=== PATIENT | female | born 1990 | race Caucasian/White ===

== ENCOUNTER 2021-08-13 18:20 | Emergency (ER) | payer SELFPAY ==
[2021-08-13 18:54] VITALS: BP 124/78; PULSE 87; RESP 20; TEMP 36.8; O2SAT 98
[2021-08-13 19:08] LABS: Hematocrit 37.6 % (37.0-47.0); Hemoglobin 12.7 g/dL (12.0-15.0); Mean Corpuscular HGB Conc 33.8 g/dl (32-36); Mean Corpuscular Hemoglobin 30.5 pg (26-34); Mean Corpuscular Volume 90.2 fl (80-100); Mean Platelet Volume 12.1 fl (7.4-10.4); Platelet Count Result 238 k/mm3 (150-375); Red Blood Count 4.17 M/mm3 (4.2-5.4); Red Cell Distribution Width 12.7 % (11.5-14.5); White Blood Count 14.4 K/mm3 (4.5-10.0)
[2021-08-13 19:13] LABS: Appearance Urine Slightly Cloudy (Clear); Bilirubin Urine 1+ (Negative); Blood Urine 3+ (Negative); Color Urine Yellow (Yellow); Glucose Urine UA Negative (Negative); Ketones Urine 4+ mg/dL (Negative); Leukocyte Esterase Ur Trace LEU/UL (Negative); Nitrate Urine Negative (Negative); Protein Urine 1+ mg/dL (Negative); Specific Grav Ur >= 1.030 (1.001-1.035); Urobilinogen Urine 0.2 mg/dL (<2.0); pH Urine 5.5 (5.0-9.0)
[2021-08-13 19:17] LABS: Alanine Aminotransferase 19 U/L (6-35); Albumin Level 4.2 g/dL (3.5-5.1); Alkaline Phosphatase 68 U/L (38-126); Anion Gap 11 mmol/L (8-16); Aspartate Amino Transferase 27 U/L (14-36); Bilirubin,Total 0.3 mg/dL (0.2-1.3); Blood Urea Nitrogen 12 mg/dL (7-17); Calcium 8.9 mg/dL (8.4-10.2); Carbon Dioxide 20 mmol/L (22-30); Chloride 106 mmol/L (98-107); Estimated CRCL calculation 74 ml/min; Estimated Glomerular Filt Rate > 60; Glucose 188 mg/dL (65-110); Lipase 106 U/L (23-300); Potassium 3.3 mmol/L (3.4-5.0); Sodium 137 mmol/L (137-145)
[2021-08-13 19:19] LABS: Mucus Urine Rare /lpf; RBC Urine >75 /hpf (0-2); Squamous Epithelial Cell Urine Few /hpf (Few)
[2021-08-13 19:23] LABS: Add Urine Microscopic? YES
[2021-08-13 19:35] LABS: Band Neutrophils Percent 2 % (0-6); Lymphocytes Absolute Manual 0.57 K/mm3 (1.1-4.5); Monocytes Absolute Manual 0.14 K/mm3 (0.1-0.90); Monocytes Percent Manual 1 % (3-9); Neutrophils Absolute Manual 13.68 K/mm3 (1.7-7.2); Neutrophils Percent Manual 93 % (46-73); Total Cells Counted 100
[2021-08-13 19:36] LABS: Platelet Estimate Adequate (Adequate)
--- NOTE | 2021-08-14 00:09 | PC.NURSE ---
called for pt twice at 2347 and 0002. no answer. pt LWBS-Triaged. Time unknown
== END 2021-08-13 23:47 | disposition left against medical advice (07) ==
PROVIDERS: Emergency Provider Emergency Medicine
DX: R11.10 Vomiting, unspecified (principal)
CPT/HCPCS: 36415; 80053; 81001; 81025; 83690; 85025; 99199

== ENCOUNTER 2022-12-11 01:59 | Day surgery (SDC) | payer BC, SELFPAY ==
[2022-12-03 13:00] VITALS: BMI 21.9
[2022-12-11 07:26] VITALS: BP 99/73; PULSE 87; RESP 16; TEMP 36.4; O2SAT 100
[2022-12-11] MEDS: LACTATED RINGERS 1,000 ML 150 ML IV CONT (07:33)
--- NOTE | 2022-12-11 08:25 | P.PNAN_ITS ---
Anes - Initial Pre Proc Eval Procedure: Operation Date: 12/11/22 08:45 Proposed Procedures p Colonoscopy - Lee Trujillo MD Date/Time: 12/11/22 08:25 Surgeon: Lee Trujillo MD Pre Op Diagnosis: family hx colon ca Patient Data Age: 32 Gender: F Height: 1.55 m Weight: 50 kg Last Vital Signs Temp 97.6 F 12/11/22 07:26 Pulse 87 12/11/22 07:26 Resp 16 12/11/22 07:26 BP 99/73 L 12/11/22 07:26 Pulse Ox 100 12/11/22 07:26 O2 Del Method Room Air 12/11/22 07:26 Allergies Allergy/AdvReac Type Severity Reaction Status Date / Time Penicillins Allergy Severe Hives Verified 12/11/22 07:22 Home Medications Medication Instructions Recorded Confirmed Type DAR-vzfx-PI-omega 3-fat com #1 27 1 cap PO DAILY 12/03/22 12/11/22 History mg-1 mg-300 mg capsule Patient hx anesthesia problems: none Family hx anesthesia problems: none Results Review: All pre-operative results and documents have been reviewed as part of the pre- operative evaluation. [facility] Social History Social History Smoking status: Never smoker Alcohol intake: current Substance use: current Substance use type: marijuana Other substance usage details: SMOKES OCC. Living arrangements: with family Spiritual care concerns: No Anes - Eval Final PreProcedure Day of Procedure 12/11/22 08:25 Patient weight: normal Heart: regular rate and rhythm Lungs: clear to auscultation Airway: Mallampati scale class II Neurological: alert and oriented Last oral intake: >/= 8 hours ASA classification: I Emergent: no Anesthetic plan: proceed Anesthesia type and monitoring: general GIVS and standard monitoring Results Review: All pre-operative results and documents have been reviewed as part of the pre- operative evaluation. Informed Consent: The patient's anesthetic plan and its attendant risks and benefits were discussed with the patient/family/POA. Questions were solicited and answers provided to the satisfaction of the patient/family/POA.
--- NOTE | 2022-12-11 08:26 | PM.HPGS ---
History of Present Illness History of Present Illness Consent: Risks, benefits, and alternatives have been discussed and questions answered. Patient agrees to proceed with procedure. Chief complaint: family hx colon ca Narrative: Anette Taylor is a 32 year old female with history of colon cancer in father and paternal uncle, last colonoscopy 4 years ago, she was told to get her colonoscopies every 4 years. Review of Systems Constitutional: Constitutional: Denies headache(s) and Denies weakness Eyes: Eyes: Denies blurry vision ENT: Reports Normal hearing present, Denies headache(s) and Denies neck pain Cardiovascular: Cardiovascular: Denies chest pain and Denies dyspnea Respiratory: Respiratory: Denies dyspnea Gastrointestinal: Gastrointestinal: Reports no additional gastrointestinal complaints Genitourinary: Genitourinary: Denies dysuria Musculoskeletal: Musculoskeletal: Denies neck pain Integumentary/Breasts: Skin/Breast: Denies dry skin Neurologic: Reports Normal hearing present, Denies headache(s) and Denies weakness Psychiatric: Psychiatric: Denies anxiety Endocrine: Endocrine: Denies change in body appearance Hematologic/Lymphatic: Hematologic/Lymphatic: Denies easy bleeding Allergic/Immunologic: Allergic/Immunologic: Denies urticaria PMFSH Past Medical History Medical History (Updated 12/11/22 @ 08:28 by Lee Trujillo MD) Family history of colon cancer Social History Social History Smoking status: Never smoker Alcohol intake: current Substance use: current Substance use type: marijuana Other substance usage details: SMOKES OCC. Living arrangements: with family Spiritual care concerns: No Meds Home Medications and Allergies Home Medications Medication Instructions Recorded Confirmed Type REH-gmat-TU-omega 3-fat com #1 27 1 cap PO DAILY 12/03/22 12/11/22 History mg-1 mg-300 mg capsule Allergies Allergy/AdvReac Type Severity Reaction Status Date / Time Penicillins Allergy Severe Hives Verified 12/11/22 07:22 Vital Signs Vital Signs - 24 hr 12/11/22 07:26 Temperature 97.6 F Pulse Rate 87 Respiratory Rate 16 Blood Pressure 99/73 L Pulse Oximetry 100 Oxygen Delivery Room Air Exam Const: General: comfortable and no acute distress HENMT: Face/Nose/Sinus: Normal nares present Eyes: General: appearance normal, both eyes and all related structures Neck: Neck: no JVD Resp: Auscultation: clear to auscultation bilaterally Cardio: Rate: regular rate Rhythm: regular rhythm GI: Inspection: non-distended GI Palp: Yes Soft to palpation Skin: General skin exam: normal color Neuro: General: gait normal Speech: normal speech Extrem: General: normal to inspection Psych: Mental Status: mental status grossly normal Assessment and Plan Assessment and plan (1) Family history of colon cancer: Code(s): Z80.0 - Family history of malignant neoplasm of digestive organs Status: Acute Assessment and Plan: colonoscopy
[2022-12-11 08:43] VITALS: BP 85/58; PULSE 86; RESP 17; O2SAT 99
[2022-12-11 08:53] VITALS: BP 96/65; PULSE 81; RESP 16; O2SAT 100
[2022-12-11 09:03] VITALS: BP 106/68; PULSE 80; RESP 22; O2SAT 100
== END 2022-12-11 09:07 | disposition home or self-care (01) ==
PROVIDERS: PCP Student in an Organized Health Care Education/Training Program; Visit Provider Internal Medicine Gastroenterology
PROC: 0DJD8ZZ Inspection of Lower Intestinal Tract, Via Natural or Artificial Opening Endoscopic (ICD-10-PCS; CPT 45378; principal; 2022-12-11 08:45)
DX: Z12.11 Encounter for screening for malignant neoplasm of colon (principal); K63.5 Polyp of colon; K64.8 Other hemorrhoids; Z80.0 Family history of malignant neoplasm of digestive organs; F12.90 Cannabis use, unspecified, uncomplicated
CPT/HCPCS: 45385; 88305; J2704; J7120

== ENCOUNTER → 2023-03-17 10:14 | Outpatient (CLI) | payer BC, SELFPAY ==
--- NOTE | ~2023-03-17 | MR_ITS ---
EXAMINATION: MR hand RT wo con DATE: 03/17/2023 10:49 INDICATION: Pain at the third proximal interphalangeal joint of the right hand post blunt trauma 5 mo nths prior. TECHNIQUE: Magnetic resonance imaging (MRI) of the right hand was performed without intravenous contr ast to include the metacarpals and digits. Sequences included axial, sagittal and coronal T1-weighted FSE and fluid sensitive FSE STIR. COMPARISON: None FINDINGS: Bone alignment is normal with normal marrow signal throughout. No fracture, reactive edema or patholo gic marrow replacing process. Joint spaces appear normal with no erosions or joint effusions. There i s thickening and mild increased signal of the ulnar collateral ligament complex and to lesser degree the radial collateral ligament complex at the third proximal interphalangeal joint without surroundin g edema consistent with scarring related to chronic sprain/partial tear. The remaining collateral lig ament complexes at the metacarpophalangeal and interphalangeal joints are normal. The flexor and exte nsor tendons are normal with no tenosynovitis. Intrinsic musculature is normal. IMPRESSION: 1. Scarring consistent with chronic sprain/partial tears of the ulnar collateral and to lesser degree the radial collateral ligament complex at the third proximal interphalangeal joint. Reviewed, dictated and finalized at location A. [employer] IMPRESSION: 1. Scarring consistent with chronic sprain/partial tears of the ulnar collatera l and to lesser degree the radial collateral ligament complex at the third prox imal interphalangeal joint.
== END ==
PROVIDERS: PCP Student in an Organized Health Care Education/Training Program; Visit Provider Student in an Organized Health Care Education/Training Program
DX: M79.644 Pain in right finger(s) (principal)
CPT/HCPCS: 73218

== ENCOUNTER 2023-06-11 14:46 | Outpatient (CLI) | payer BC, SELFPAY ==
--- NOTE | ~2023-06-11 | US_ITS ---
EXAMINATION: US OB <= 14 weeks fetus DATE: 06/11/2023 15:05 INDICATION: Evaluate viability TECHNIQUE: Real-time transabdominal and transvaginal obstetric ultrasound. FINDINGS: No prior studies for comparison. The uterus measures 12.2 x 10.1 x 7.3 cm. There is an intrauterine gestational sac, with pole i dentified. The crown rump length measures 6.83 cm, which correlates with a estimated gestational age of 13 weeks 1 day. heart tones are identified measuring 159. There is a subchorionic hemorrh age measuring 2.3 x 2.1 x 1 cm. IMPRESSION: 1. SL IUP with an EGA of 13 weeks, 1 days (EDC by current ultrasound of 12/16/2023). 2: Moderate size subchorionic hemorrhage. Reviewed, dictated and finalized at location B. IMPRESSION: 1. SL IUP with an EGA of 13 weeks, 1 days (EDC by current ultrasound of 024). 2: Moderate size subchorionic hemorrhage.
== END 2023-06-11 14:47 ==
LOC: GOSHIMG 14:48
PROVIDERS: PCP Obstetrics & Gynecology Gynecology; Visit Provider Obstetrics & Gynecology Gynecology
DX: Z36.87 Encounter for antenatal screening for uncertain dates (principal); Z3A.13 13 weeks gestation of pregnancy
CPT/HCPCS: 76801

== ENCOUNTER 2023-10-25 14:05 | Outpatient (CLI) | payer BC, SELFPAY ==
--- NOTE | ~2023-10-25 | US_ITS ---
EXAMINATION: US OB follow up DATE: 10/25/2023 14:30 INDICATION: Expected size less than expected for estimated gestational age TECHNIQUE: Real-time ultrasound of the pelvis was performed. The interpreting radiologist was not pre sent for the study. COMPARISON: 06/11/23 FINDINGS: There is a single living fetus in vertex presentation. The placenta is anterior fundal and not low-l shireen. heart rate is 157 beats per minute (bpm). The amniotic fluid index is 12.1 cm, which is normal (5th%-95%: 8.6-24.2 cm at 32 weeks estimated gestational age). The following biometric data were obtained: BPD: 7.9 cm -> 31 weeks 6 days Head circumference: 29.1 cm -> 32 weeks 0 days Abdominal circumference: 26.1 cm -> 30 weeks 1 days Femur length: 5.9 cm -> 30 weeks 5 days These measurements are concordant. Head circumference to abdominal circumference ratio: 1.12 (normal range 0.96-1.17). Estimated weight: 1620 g (+/-) 243 g or 3 lbs. 9 oz. (+/-) 9 oz. IMPRESSION: 1. Single living fetus in vertex presentation with heart rate of 157 bpm. 2. Normal amniotic fluid index of 12.1 cm. 3. Estimated weight is 4th percentile by Hadlock criteria when 12/16/2023 is used as the estima divya date of delivery (LISSY). Please correlate with clinical information or earlier ultrasounds for mos t accurate LISSY. Reviewed, dictated and finalized at location B. IMPRESSION: 1. Single living fetus in vertex presentation with heart rate of 157 bpm. 2. Normal amniotic fluid index of 12.1 cm. 3. Estimated weight is 4th percentile by Hadlock criteria when 12/16/2023 is used as the estimated date of delivery (LISSY). Please correlate with clinica l information or earlier ultrasounds for most accurate LISSY.
== END 2023-10-25 14:06 | disposition home or self-care (01) ==
PROVIDERS: PCP Advanced Practice Midwife; Visit Provider Advanced Practice Midwife
DX: O36.5930 Maternal care for other known or suspected poor fetal growth, third trimester, not applicable or unspecified (principal); Z3A.00 Weeks of gestation of pregnancy not specified
CPT/HCPCS: 76816

== ENCOUNTER 2023-12-19 09:58 | Inpatient (IN) | payer BC, SELFPAY ==
[2023-12-19] VITALS (155 sets, daily range): BP systolic 92–150; BP diastolic 49–121; PULSE 56–196; TEMP 36.3–37.6; O2SAT 71–100; BMI 28.0
--- NOTE | 2023-12-19 10:57 | LDADM ---
This patient, Anette Taylor, was admitted to Labor/Delivery/Recovery 106 on 12/19/23 at 09:58. Plans for labor, pain management and were discussed with patient. Patient/family oriented to hospital policies and general routines including ID bracelet, bed and alarms, visiting hours, pain management, procedures, bathroom and other care routines, personal items, smoking policy, room service/diet and guest tray routines, security routines, and visiting hours. Patient/Family are encouraged to report perceived risks to care and to ask questions if they do not understand what they are told or what they should do. See OBIX for further documentation.
[2023-12-19 11:02] LABS: Basophils Percent Auto 0.3 % (0.2-1.2); Eosinophils Percent Auto 0.2 % (0-4.4); Hematocrit 33.7 % (37.0-47.0); Hemoglobin 10.6 g/dL (12.0-15.0); Immature Granulocyte Absolute 0.11 K/mm3 (0.00-0.031); Immature Granulocyte Percent A 0.8 % (0-0.5); Immature Platelet Fraction Pct 11.6 % (0.9-11.2); Lymphocytes Absolute Auto 2.22 K/mm3 (0.9-3.2); Lymphocytes Percent Auto 15.9 % (18.3-44.2); Mean Corpuscular HGB Conc 31.5 g/dl (32-36); Mean Corpuscular Hemoglobin 23.7 pg (26-34); Mean Corpuscular Volume 75.2 fl (80-100); Mean Platelet Volume 12.4 fl (7.4-10.4); Monocytes Absolute Auto 0.7 K/mm3 (0.1-0.6); Monocytes Percent Auto 4.7 % (2.6-8.5); Neutrophils Absolute Auto 10.9 K/mm3 (1.3-6.7); Neutrophils Percent Auto 78.1 % (45.5-73.1); Platelet Count Result 284 k/mm3 (150-375); Red Blood Count 4.48 M/mm3 (4.2-5.4); Red Cell Distribution Width 15.9 % (11.5-14.5)
--- NOTE | 2023-12-19 11:08 | P.HP_ITS ---
H&P: HPI History of Present Illness Date/Time: 12/19/23 11:08 Chief Complaint: Ruptured membranes at term Narrative: 33-year-old 2 para 0 whose last menstrual period is 03/18/2023, EDC is 12/23/2023, confirmed by 12 week ultrasound presents at 39 weeks gestation with spontaneous rupture membranes [id number]. has been relatively uncomplicated. She has a history of kidney stones in oral HSV for which she has been on preventive therapy. She has also had a history of a LEEP in is advanced maternal age. She was also positive for weed usage early in the [facility] Past Medical History Medical History Family history of colon cancer Family History Family History Grandparent Colon cancer Grandparent Colon cancer Father Colon cancer Social History Social History Smoking status: Never smoker Alcohol intake: current Substance use: never Substance use type: marijuana Other substance usage details: SMOKES OCC. Do You Feel Safe in your Home?: Yes Lack of Transportation: No Lack of Food: Never True Current Housing: I Have Housing Concerned About Future Housing: No Difficulty Paying Gas/Electric Bills: No Difficulty Paying for Meds: No Currently Unemployed: No Education: Trade/Vocational Certificate Difficulty w/ Childcare or Family Care: No Living arrangements: with family Spiritual care concerns: No Meds Home Medications and Allergies Home Medications Medication Instructions Recorded Confirmed Type SAK-qspb-SP-omega 3-fat com #1 27 1 cap PO DAILY 12/03/22 12/19/23 History mg-1 mg-300 mg capsule valacyclovir 500 mg tablet 500 mg PO BID 12/08/23 12/08/23 History (Valtrex) Allergies Allergy/AdvReac Type Severity Reaction Status Date / Time Penicillins Allergy Severe Hives Verified 12/08/23 14:16 Vital Signs Vital Signs - 24 hr 12/19/23 10:44 12/19/23 10:48 Pulse Rate 108 H Blood Pressure 125/89 Oxygen Delivery Room Air Exam Const: General: cooperative, healthy appearing and comfortable Nutritional Appearance: average body habitus Orientation/consciousness: oriented to person, oriented to place and oriented to time Resp: Effort & Inspection: normal respiratory effort Cardio: Rate: regular rate Rhythm: regular rhythm Heart sounds: S1 normal heart sound present and S2 normal heart sound present GI: Inspection: normal to inspection : External Female Exam: normal external appearance Speculum Exam - Vagina: normal appearance of the vagina Speculum Exam - Cervix: normal appearance of the cervix ( cervix 1cm in soft with clear fluid. heart tones were reassuring) H&P: Results Labs Labs: Short CBC 12/19/23 Range/Units 10:50 WBC 14.0 H (4.5-10.0) K/mm3 Hgb 10.6 L (12.0-15.0) g/dL Hct 33.7 L (37.0-47.0) % Plt Count 284 (150-375) k/mm3 Assessment and Plan Assessment and plan (1) Term : Code(s): Z34.90 - Encounter for supervision of normal , unspecified, unspecified trimester Status: Acute (2) Spontaneous rupture of membranes: Status: Acute Assessment and Plan: in light of her rupture of membranes will start Pitocin. She is an epidural candidate
[2023-12-19] MEDS: OXYTOCIN 30 UNITS/NS 500 ML 30 UNITS/500 ML BAG IV CONT (11:13)
[2023-12-19] MEDS: LACTATED RINGERS 1,000 ML 125 ML IV CONT ×2 (11:13→14:50)
[2023-12-19 11:34] LABS: OBXCEM ROM Plus Positive (Negative)
[2023-12-19 11:49] LABS: HIV 1/2 Ab P24 Ag Result Negative (Negative)
[2023-12-19 12:27] LABS: Rapid Plasma Reagin Non-Reactive (NonReactive)
[2023-12-19 12:53] LABS: Amphetamine Screen Urine Negative (Negative); Barbiturate Screen Urine Negative (Negative); Benzodiazepines Screen Urine Negative (Negative); Cannabinoid Screen Urine Negative (Negative); Cocaine Screen Urine Negative (Negative); Methadone Screen Urine Negative (Negative); Opiate Screen Urine Negative (Negative); Phencyclidine Screen Urine Negative (Negative)
--- NOTE | 2023-12-19 17:05 | PM.OBPNLAB ---
Pain Control Date/time seen: 12/19/23 17:05 Pain control: tolerating well and epidural Pelvic Exam Dilation (cm): 5 Effacement (%): 75 station: -2 Amniotic membrane status: Leaking Contractions Monitor mode: Internal Contraction frequency: 3
[2023-12-19] MEDS: FAMOTIDINE 20 MG/2 ML VIAL IV PUSH (18:06)
[2023-12-19] MEDS: ONDANSETRON INJ 4 MG/2 ML VIAL IV PUSH (21:09)
--- NOTE | 2023-12-19 21:55 | PM.OBPRVD ---
OB - Vaginal Delivery Note Procedure Delivery date: 12/19/23 Induction method: None Delivery augmentation: Pitocin Delivery monitor: External FHT and Internal Uterine Route of delivery: Episiotomy description: None Laceration Description: Perineal - 2nd Degree Delivery repair: vicryl Specimen: No Quantitative Blood Loss (ml): 61 Anesthesia type: Epidural Disposition: Floor Complications: No immediate complications Narrative: Patient was admitted after spontaneous rupture membranes approximately 0 300 this morning. She was watched and had irregular contractions. Pitocin was begun. She progressed in unremarkable 1st stage of labor had epidural anesthesia placed when she was complete she pushed delivered head spontaneously in the JOHANN position. Anterior posterior shoulder delivered spontaneously. Cord clamped visual cut infant passed off the table given Apgars of 8 [id number]. Cord blood was drawn. Placenta delivered intact spontaneously. Twenty of Pitocin placed IV to help firm the uterus. After inspecting the vagina small midline second-degree laceration was noted which was small in nature and was closed in layered fashion. The mom and baby doing fine time make taken there were no immediate complications [place] [facility] Date of : 12/19/23 Time of : 21:42 Gestational Age by Date: 39 gender: Female presentation: vertex position: Left Occiput Anterior Placenta delivery description: Spontaneous Cord Vessel Description: 3 Vessels score one minute: 8 score five minutes: 9
[2023-12-19] MEDS: OXYTOCIN 30 UNITS/NS 500 ML 30 UNITS/500 ML BAG 125 UNITS IV CONT (22:20)
[2023-12-19] MEDS: ACETAMINOPHEN 325 MG TABLET 650 MG PO (23:47)
[2023-12-19] MEDS: WITCH HAZEL 40 PADS 1 PAD TOPICAL (23:47)
[2023-12-19] MEDS: BENZOCAINE 20% AER SPR (*SP) 56 GM CAN 1 SPRAY TOPICAL (23:47)
[2023-12-20] VITALS: BP 138/78; PULSE 100
[2023-12-20 00:36] VITALS: BP 123/80; PULSE 99
--- NOTE | 2023-12-20 01:00 | OBPPTRN ---
Patient transferred to post care in room #112 via wheelchair. Support person present. Oriented to unit, room, information board, rooming in, admission packet and security measures. Patient verbalizes understanding.
[2023-12-20 01:02] VITALS: BP 123/80; PULSE 99; RESP 20; TEMP 36.7; O2SAT 100
[2023-12-20 04:23] LABS: Hematocrit 27.7 % (37.0-47.0); Hemoglobin 8.7 g/dL (12.0-15.0)
--- NOTE | 2023-12-20 08:22 | P.PNOB_ITS ---
OB - PN: Subj Subjective Date/time seen: 12/20/23 08:22 Patient comments: no complaints and pain well controlled baby status: doing well OB - PN: Obj Data Labs 12/20/23 04:07 Labs: Laboratory Results - last 24 hr 12/19/23 12/19/23 12/19/23 10:12 10:50 12:25 WBC 14.0 H RBC 4.48 Hgb 10.6 L Hct 33.7 L MCV 75.2 L MCH 23.7 L MCHC 31.5 L RDW 15.9 H Plt Count 284 MPV 12.4 H Immature Gran % (Auto) 0.8 H Neut % (Auto) 78.1 H Lymph % (Auto) 15.9 L [place] % (Auto) 4.7 Eos % (Auto) 0.2 Baso % (Auto) 0.3 Lymph # (Auto) 2.22 [place] # (Auto) 0.7 H Eos # (Auto) 0.0 Baso # (Auto) 0.0 Abs Immat Gran (auto) 0.11 H Absolute Neuts (auto) 10.9 H Absolute Nucleated RBC 0.000 Nucleated RBC % 0.0 % Immature Plt Fraction 11.6 H Membranes Rupture Rom plus positive Urine Opiates Screen Negative Urine Methadone Screen Negative Ur Barbiturates Screen Negative Ur Phencyclidine Scrn Negative Ur Amphetamine Screen Negative U Benzodiazepines Scrn Negative Urine Cocaine Screen Negative U Cannabinoids Screen Negative RPR Non-reactive HIV 1&2 Ab/P24 Ag 4thGn Negative Blood Type B Negative Antibody Screen Negative 12/20/23 04:07 WBC RBC Hgb 8.7 L Hct 27.7 L MCV MCH MCHC RDW Plt Count MPV Immature Gran % (Auto) Neut % (Auto) Lymph % (Auto) [place] % (Auto) Eos % (Auto) Baso % (Auto) Lymph # (Auto) [place] # (Auto) Eos # (Auto) Baso # (Auto) Abs Immat Gran (auto) Absolute Neuts (auto) Absolute Nucleated RBC Nucleated RBC % % Immature Plt Fraction Membranes Rupture Urine Opiates Screen Urine Methadone Screen Ur Barbiturates Screen Ur Phencyclidine Scrn Ur Amphetamine Screen U Benzodiazepines Scrn Urine Cocaine Screen U Cannabinoids Screen RPR HIV 1&2 Ab/P24 Ag 4thGn Blood Type Antibody Screen OB - PN A/P Plan day: 1 Plan: routine care and other ( Iron twice daily due to hemoglobin of 8.7) Time Spent With Patient Time: Total time spent is greater than 50% in coordination of care (as documented) at patient's floor/unit and/or counseling patient: Exam : Bimanual exam- vagina & uterus: other (Uterus firm, nt @U)
[2023-12-20] MEDS: IBUPROFEN 600 MG TABLET PO ×2 (08:33→16:07)
[2023-12-20] MEDS: MULTIVIT/MIN/PREN/FOL AC/IRON TABLET 1 TAB PO (08:33)
[2023-12-20] MEDS: POLYSACCHARIDE IRON COMPLEX 150 MG CAPSULE PO ×2 (08:33→16:06)
[2023-12-20] MEDS: DOCUSATE SODIUM 100 MG CAPSULE PO ×2 (08:33→16:06)
--- NOTE | 2023-12-20 09:30 | PC.NURSE ---
Patient transferred from room 112 to post room #290 via wheelchair. Support person present. Oriented to unit, room, information board, rooming in, admission packet and security measures. Patient verbalizes understanding.
[2023-12-20 09:35] VITALS: BP 104/73; PULSE 88; RESP 16; TEMP 36.8; O2SAT 97
--- NOTE | 2023-12-20 10:17 | WPDANLDPN2 ---
Anes-Prog Note L&D Date/Time: 12/20/23 10:17 Neuro status: Neuro function grossly intact. Vital Signs: Last Vital Signs Temp 36.7 C 12/20/23 01:02 Pulse 99 12/20/23 01:02 Resp 20 12/20/23 01:02 BP 123/80 12/20/23 01:02 Pulse Ox 100 12/20/23 01:02 O2 Del Method Room Air 12/19/23 10:48 Pain score (VAS): 0 I/O: Intake & Output 12/19/23 12/20/23 12/20/23 23:59 07:59 15:59 Output Total 61 115 Balance -61 -115 Patient feedback: Patient satisfied with anesthetic care.
--- NOTE | 2023-12-20 10:45 | PC.NURSE ---
Mother called out for assistance. She has given bottles a few times so far but says that infant is latching well. Encouraged understanding of milk production, colostrum, frequency of infant feeding and duration if feeds. Mom has concerns that baby isn't 'getting enough' because she wants to eat frequently. Reassured mom this is normal behavior. Infant was sucking vigorously on the pacifier prior to the feeding and struggled a bit to latch to the nipple. Baby was turning her head side to side at the breast and needed a facilitated breast 'sandwich' to latch on. Mom shown how to make this bite and then she was able to recreate the latch on her own. Observed mother latching to the [left] breast in [cross cradle] position. Infant [was] able to maintain an appropriate latch. Baby would suckle vigorously and after 20-30 seconds would let go and fuss. We discussed the flow of milk from a bottle versus the flow from a breast. Mother [complains of] nipple discomfort [with initial latch on]. Discussed pain/pinching throughout the feeding vs. initial latch on tenderness and strong tugging sensation. Encouraged mother to keep awake and nursing at the breast for 15 minutes. Mother taught to listen for swallowing during feedings. Reviewed using the blue feeding sheet to record time and duration of feeding. Mother voiced understanding of the education shared, to call for assistance if the infant does not latch or if there is discomfort with . name/number on communication board. Reported to the Primary RN.?
[2023-12-20 12:20] VITALS: BP 101/62; PULSE 88; RESP 16; TEMP 36.6; O2SAT 99
[2023-12-20 20:00] VITALS: BP 122/78; PULSE 94; RESP 20; TEMP 36.7; O2SAT 99
[2023-12-21 07:05] VITALS: BP 88/61; PULSE 76; RESP 16; TEMP 36.7; O2SAT 97
[2023-12-21] MEDS: DOCUSATE SODIUM 100 MG CAPSULE PO (07:34)
[2023-12-21] MEDS: IBUPROFEN 600 MG TABLET PO (07:34)
[2023-12-21] MEDS: MULTIVIT/MIN/PREN/FOL AC/IRON TABLET 1 TAB PO (07:34)
[2023-12-21] MEDS: ACETAMINOPHEN 325 MG TABLET 650 MG PO (07:34)
[2023-12-21] MEDS: POLYSACCHARIDE IRON COMPLEX 150 MG CAPSULE PO (07:34)
--- NOTE | 2023-12-21 07:48 | PM.OBPNVD ---
OB - PN: Subj Subjective Date/time seen: 12/21/23 07:48 Patient comments: no complaints and pain well controlled baby status: doing well OB - PN: Obj Data Labs 12/20/23 04:07 OB - PN A/P Plan day: 2 Plan: routine care, discharge home, follow up 6 weeks and other (micronor for bc) Time Spent With Patient Time: Total time spent is greater than 50% in coordination of care (as documented) at patient's floor/unit and/or counseling patient: Exam : Bimanual exam- vagina & uterus: other (Uterus firm, nt @U)
--- NOTE | 2023-12-21 07:49 | PM.OBDSVD ---
DS: Admitting Diagnosis Discharge Date 12/21/23 Admitting Diagnosis SROM in labor DS: Discharge Diagnosis Discharge Diagnosis (1) (normal spontaneous vaginal delivery): Code(s): O80 - Encounter for full-term uncomplicated delivery Status: Acute Assessment and Plan: Delivery by [facility] OB - DS: Summary OB Procedures : Ultrasound OB Procedures Intrapartum: Spontaneous Vag Delivery OB Procedures: : None Peripartum Data Delivery Method: Natural Vaginal Laceration Description: Perineal - 2nd Degree Episiotomy description: None complications: none Status at Discharge Functional status at discharge: independent ambulation Overall status at discharge: patient is progressing back to baseline Time Spent with Patient Time attestation: Total time spent providing and/or coordinating discharge services: Discharge Plan Discharge Attending physician on discharge: Ibis Caldwell Discharging Clinician: Ibis Caldwell Anticipated Discharge Date/Time: 12/21/23 07:50 Patient Disposition: Home, Self-Care Activity: may shower and pelvic rest Diet: regular Patient Instructions: Antibiotic Form Stand Alone Forms: General Discharge Information Follow-up/Referrals: Anette Rosen CNM [Primary Care Provider] - 6 Weeks Discharge Medications: New norethindrone (contraceptive) 0.35 mg tablet 0.35 mg PO DAILY Qty: 84 3RF Continued Pre-Shannan Multivitamins/Minerals 27-1-300 mg Capsule 1 cap PO DAILY valacyclovir [Valtrex] 500 mg Tablet 500 mg PO BID Date of admission: 12/19/23 09:58 Primary Care Provider: Anette Rosen Admitting Provider: Ibis Caldwell Attending physician on admission: Ibis Caldwell Condition: Stable
--- NOTE | 2023-12-21 08:21 | PC.NURSE ---
Patient viewed the discharge video Mother & Baby Care, The First Two Weeks . Patient was given the opportunity and encouraged to ask questions. Patient verbalized understanding of information shared and has been given the mother/baby guide for home reference.
--- NOTE | 2023-12-21 08:30 | PC.NURSE ---
Introductions were made, then consulted with patient to assess needs related to . Discussed with mother how feedings went in the night. Baby received bottles so mom could sleep. She would like to try again this morning. She is going to shower and then will call for assistance. Resources provided for inpatient and outpatient services with the feeding sheet, mom/baby guide and name/number written on the communication board. Mother voiced understanding of information and will call if there is a request for assistance. Reported to the Primary RN.
--- NOTE | 2023-12-21 09:00 | PC.NURSE ---
Mother had baby latched to the right breast already when RN entered the room. Baby was actively sucking with brief pauses. Mother states the latch is not painful. After about 15 minutes on the right, observed mother latching infant to the [left] breast in [cross cradle] position. [was] able to maintain an appropriate latch. Mother [complains of] nipple discomfort [with initial latch on] that goes away after a few seconds and then she does not feel any pain with the suckling. Encouraged mother to keep infant awake and nursing at the breast for 15 minutes per breast, trying not to go in excess of 30 minutes total. She says that she had one feeding where baby was nursing for 60 minutes. Mother taught to listen for infant swallowing during feedings. Reviewed using the blue feeding sheet to record time and duration of feeding. Discussed output requirements with the drill hand (present in the room for baby's exam) and safe sleep also. We discussed milk production, switching breasts, and pumping. Mom has a pump at home and would like to be able to pump some breast milk so others can feed baby while she sleeps. Mother voiced understanding of the education shared, to call for assistance if the does not latch or if there is discomfort with . name/number on communication board. Reported to the Primary RN.?
--- NOTE | 2023-12-21 15:00 | PC.NURSE ---
Consulted with mother concerning needs and she shared her ability to independently latch infant optimally without pain. Mother is feeding appropriately for growth of and understands stimulating to eat if needed. Infant has had appropriate feedings in the last 24 hours meets the outcomes for weight, output, blood sugar and jaundice at this time. Reinforced understanding of milk production, transition of milk, signs of adequate intake, transition of stool, prevention/relief of engorgement, plugged ducts, mastitis, responsive watching for feeding cues, the different methods of stimulating to breastfeed 1-3 hours after the start of the last feeding, community resources, and when to call a provider using the resource of the feeding sheet along with the mom and baby guide. Mother voiced understanding of the information shared, is confident to continue effectively her infant at home, when to call for assistance, denies any additional assistance or education at this time. Reported to the Primary RN.
[2023-12-23 11:25] VITALS: BP 88/61; PULSE 91; RESP 16; TEMP 36.8; O2SAT 96
== END 2023-12-21 17:42 | disposition home or self-care (01) | DRG 807 ==
LOC: ANHLDR 17:10 → ANHOBPP 12-20 00:33 → ANHOB2 12-20 09:34
PROVIDERS: Admitting Provider Obstetrics & Gynecology; PCP Advanced Practice Midwife; Visit Provider Obstetrics & Gynecology Gynecology
DX: O98.52 Other viral diseases complicating childbirth (principal); Z37.0 Single live birth; B00.9 Herpesviral infection, unspecified; O70.1 Second degree perineal laceration during delivery; Z3A.39 39 weeks gestation of pregnancy
CPT/HCPCS: 36415; 80307; 84112; 85014; 85018; 85025; 85055; 86592; 86703; 86850; 86900; 86901; A9270; G0432; J2405; J2590; J2795; J7120

== ENCOUNTER 2024-03-08 18:05 | Emergency (ER) | payer BC, SELFPAY ==
[2024-03-08 18:21] VITALS: BP 124/67; PULSE 78; RESP 18; TEMP 36.6; O2SAT 100
--- OUTSIDE RECORDS SUMMARY | 2024-03-10 03:30 | XMS_ITS | Clinical Summary ---
Author Organization [facility] Address [address] [place] [address] Care Team Providers Care Bottom Liquor Attendant Name Role Phone Bobo Virk MD Primary Care Provider [phone] Allergies Active Allergy Reactions Criticality Noted Date Comments Penicillins Rash Medium Medications valACYclovir (VALTREX) 1 gram tablet Take 2 tabs (2000 mg) 2 times a days for 1 day. 4 tablet 5 1 Active Additional Information Patient not taking.Reported on 04/01/2021 Xulane 150-35 mcg/24 hr 0 Active ondansetron (ZOFRAN) 4 mg tablet Take 1 tablet (4 mg total) by mouth every 4 (four) hours as needed for nausea or vomiting 15 tablet 1 Active Additional Information Patient not taking.Reported on 04/01/[address] (PROTONIX) 20 mg EC tablet Take 1 tablet (20 mg total) by mouth daily 20 tablet 1 Active Additional Information Patient not taking.Reported on 04/01/2021 busPIRone (BUSPAR) 5 mg tabletIndicatio ns:Generalized Anxiety Disorder Take 1 tablet (5 mg total) by mouth 3 (three) times a day 30 tablet 11 1 Active Additional Information Patient not taking.Reported on 04/01/2021 Active Problems Problem Noted Date Diagnosed Date Acute cystitis with hematuria 04/01/2021 Assessment & Plan (04/01/2021 6:01 PM LOCAL AREA NETWORK ADMINISTRATOR): Urine dip done in office: -nitrites, +blood Urine sent for culture macrobid 100mg bid x7 days sent. Reviewed abx SE & scheduling. Take all antibiotic-no leftovers Push fluids-water/cranberry juice Avoid caffeine Wash before and after sex Urinate right after sex Use dove type soap in vaginal area-no scents or dyes Take showers not baths, no bubble baths Proper wiping technique discussed Right flank pain 04/09/2020 Microscopic hematuria 04/09/2020 Urinary tract infection without hematuria 2020 Family history of colon cancer 06/29/2019 Overview (06/29/2019): Added automatically from request for surgery [id number] Calculus of kidney 11/18/2015 Immunizations Name Administration Dates Next Due Influenza, Unspecified 07/03/2020(Deferr ed: Patient Refused),02/15/2019(Deferred: Patient Refused) MMR 09/10/2019 Moderna SARS-CoV-2 Monovalen t Vaccination (12+ YRS) 04/26/2020,04/05/2020 Surgical History Surgery Date Site/Laterality Comments TONSILLECTOMY 02/15/1994 - 02/14/1995 Tonsillectomy OTHER SURGICAL HISTORY Abnormal PAP: Colpo at age 19 [place] CYSTO W/URETEROSCOPY W/RMVL/MANJ STONES Cystoscopy With Ureteroscopy With Removal Of Calculus - (Added by TW Conv) TONSILECTOMY, ADENOIDECTOMY, BILATERAL MYRINGOTOMY AND TUBES COLONOSCOPY 02/16/2004 - 02/14/2005 Medical History Medical History Date Comments History of abnormal cervical Papanicolaou smear Abnormal PAP Hx Other Medical 07/11/2014 ASCUS-H pap wit h positive HR HPV 16 Personal history of urinary calculi History of nephrolithiasis - (Added by TW Conv) Kidney stone Family History Medical History Relation Name Comments Colon cancer Father Cancer, colon; Colon cancer Father's Brother x 2 Cancer, col on; Diabetes Maternal Grandfather Diabete s mellitus; Hypertension Maternal Grandmother Hyperte nsion; Skin cancer Maternal Grandmother Colon cancer Paternal Grandfather Cancer, colon; Relation Name Status Comments Father (Age 61) Father's Brother x 2 Maternal Grandfather Maternal Grandmother Paternal Grandfather Social History Tobacco Use Types Packs/Day Years Used Date Smoking Tobacco: Never Smokeless Tobacco: Never PHQ-2 Answer Date Recorded PHQ-2 Total Score (If total score is 3 or more points, staff should administer the PHQ-9) 2 07/03/2020 Comments No Sex and Gender Information Value Date Recorded Sex Assigned at Not on file Legal Sex Female 1:43 AM LOCAL AREA NETWORK ADMINISTRATOR Gender Identity Not on file Sexual Orientation Not on file Obstetrics History Last Filed Vital Signs Vital Sign Reading Time Taken Comments Blood Pressure 92/62 04/01/2021 5:19 PM LOCAL AREA NETWORK ADMINISTRATOR Pulse 77 04/01/2021 5:19 PM LOCAL AREA NETWORK ADMINISTRATOR Temperature 36.9 ??C (98.4 ??F) 04/01/2021 5:19 PM CS T Respiratory Rate 16 04/01/2021 5:19 PM LOCAL AREA NETWORK ADMINISTRATOR Oxygen Saturation 100% 04/01/2021 5:19 PM LOCAL AREA NETWORK ADMINISTRATOR Inhaled Oxygen Concentration - - Weight 53.4 kg (117 lb 12.8 oz) 04/01/2021 5:19 PM LOCAL AREA NETWORK ADMINISTRATOR Height 154.9 cm (5' 1 ) 04/01/2021 5:19 PM LOCAL AREA NETWORK ADMINISTRATOR Body Mass Index 22.26 04/01/2021 5:19 PM LOCAL AREA NETWORK ADMINISTRATOR Plan of Treatment Health Maintenance Due Date Last Done Comments Cervical Cancer Screening 1988 Hepatitis C Screening 1988 DTaP/Tdap/Td Vaccine (1 - Tdap) 08/14/1999 Hepatitis B Screening 2006 Regular Well Visit/Exam 18-64 06/11/2020 06/12/2019 Depression Screening 07/03/2021 07/03/2020, 06/12/2019 Covid-19 Vaccine ( season) 2023 04/26/2020, 04/05/2020 Influenza Vaccine (#1) 2023 HPV Vaccines Aged Out No longer eligi ble based on patient's age to complete this topic Pneumococcal vaccine <65 Aged Out No longer eligible based on patient's age to complete this topic Varicella Vaccines Discontinued Insurance [facility] PPO [place] Advance Directives For more information, please contact: [phone] * Full Code (Latest Code Status on File) Date Activated Date Inactivated Comments 09/08/2019 8:04 AM 09/08/2019 2:58 PM * Full Code Date Activated Date Inactivated Comments 09/08/2019 8:04 AM 09/08/2019 8:04 AM Care Teams Bottom Liquor Attendant Relationship Specialty Start Date End Date Bobo Virk MD [address] [place] [address] PCP - General Family Medicine 03/27/19
--- OUTSIDE RECORDS SUMMARY | 2024-03-10 03:30 | XMS_ITS | Clinical Summary ---
Author Organization [facility] Address Count includes the [facility] [facility] [place] [address] [place] [address] Care Team Providers Care Wire Bound Box Machine Helper Name Role Phone Stoney Weinberg DO Primary Care Provider + Allergies Active Allergy Reactions Criticality Noted Date Comments Penicillins Rash,Hives,Itching Medium 06/26/2021 Medications ibuprofen 200 MG tablet Take 1 tablet (200 mg total) by mouth every 6 (six) hours as needed for Pain. Active scopolamine (TRANSDERM-SCOP ) 1 MG/3DAYS patchIndication s:Motion sickness, initial encounter Place 1 patch onto the skin every third day. 10 patch 08/29/2021 Active hydrOXYzine (ATARAX) 25 MG tablet Take 1 tablet (25 mg total) by mouth nightly at bedtime. 04/27/2023 Active metoclopramide (REGLAN) 5 MG tablet Take 1 tablet (5 mg total) by mouth 4 (four) times daily. 04/29/2023 Active Ggoyfwkd-Jrp-Ag -FA ( VITAMINS OR) Active Pyridoxine HCl (VITAMIN B-6) 25 MG Tab Active DOXYLAMINE SUCCINATE, SLEEP, OR Active Active Problems Problem Noted Date Diagnosed Date NSIHA (generalized anxiety disorder) 06/26/2021 Family history of hereditary nonpolyposis colore ctal cancer 06/29/2019 Overview (06/26/2021): Added automatically from request for surgery [id number] Recurrent kidney stones 11/18/2015 Comments Yes Immunizations Name Administration Dates Next Due Fluzone 6 Months+ Quad (0.5 mL Prefilled Syringe ) 02/25/2023 MMR (MMRII) 09/10/2019 MODERNA COVID-19 BIVALENT (12+), MRNA, LNP-S, PF 12/20/2021 MODERNA COVID-19 (COMBUSTION ENGINEER IRIS PATO), MRNA, LNP-S, PF, 50 MCG/ 0.25 ML DOSE 01/31/2021 Tdap (Adacel) 02/25/2023 Family History Medical History Relation Comments Depression Brother Cancer Father No Known Problems Mother Relation Status Comments Brother Alive Father Alive Skin and colon c ancer, blind in both eyes Mother Alive Social History Tobacco Use Types Packs/Day Years Used Date Smoking Tobacco: Never Passive Smoke Exposure: Never Smokeless Tobacco: Never Tobacco Cessation:Counseling Given: No Alcohol Use Standard Drinks/Week Comments Yes 1.7 (1 standard drink = 0.6 oz p ure alcohol) socially PHQ-2 Answer Date Recorded Patient Health Questionnaire-2 Score 0 02/25/2023 Comments Yes Sex and Gender Information Value Date Recorded Sex Assigned at Not on file Legal Sex Female 10:03 AM CDT Gender Identity Female 06/26/2021 6:23 AM CDT Sexual Orientation Choose not to disclose 2021 6:23 AM CDT Occupation Industry Job Start Date Job End Date Not on file Not on file Not on file Not on file Last Filed Vital Signs Vital Sign Reading Time Taken Comments Blood Pressure 112/76 05/06/2023 2:32 PM CDT Pulse 100 05/06/2023 2:32 PM CDT Temperature 36.8 ??C (98.3 ??F) 05/06/2023 2:32 PM CD T Respiratory Rate 16 02/25/2023 11:11 AM 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 Oxygen Saturation 98% 05/06/2023 2:32 PM CDT Inhaled Oxygen Concentration - - Weight 50.8 kg (112 lb) 05/06/2023 2:32 PM CDT Height 154.9 cm (5' 1 ) 05/06/2023 2:32 PM CDT Body Mass Index 21.16 05/06/2023 2:32 PM CDT Plan of Treatment Health Maintenance Due Date Last Done Comments Cervical Cancer Screening Pap Smear (Age 30 to 64) Every 3 Years 1988 Annual Physical 08/14/1991 Hepatitis B Vaccines (1 of 3 - 19+ 3-dose series) 08/14/2007 Cervical Cancer Screening Pap with HPV Testing (Age 30 to 64) Every 5 Years 2018 Cervical Cancer Screening with HPV 2018 COVID-19 Vaccine ( season) 2023 12/20/2021, 01/31/2021, 04/26/2020, Additional history exists Influenza Adult (#1) 2023 02/25/2023 PHQ-2 (Physician Ewiiaapaayp) 02/26/2024 02/25/2023 DTaP, Tdap and Td Vaccines (2 - Td or Tdap) 02/25/2033 02/25/2023 RSV Immunization or 60+ Years (1 - 1-dose 75+ series) 08/14/2063 Hepatitis C Completed 06/26/2021 HPV Vaccines Aged Out No longer eligi ble based on patient's age to complete this topic Meningococcal B Vaccine Aged Out No l onger eligible based on patient's age to complete this topic Meningococcal Vaccine Aged Out No porfirio farida eligible based on patient's age to complete this topic Pneumococcal Vaccine: Pediatrics (0 to 5 Years) and At-Risk Patients (6 to 64 Years) Aged Out No longer eligible based on patient's age to complete this topic RSV Immunizations Under 20 Months Aged Out No longer eligible based on patient's age to complete this topic Procedures Procedure Name Priority Date/Time Associated Diagnosis Comments HEPATITIS C ANTIBODY Routine 06/26/2021 11:41 AM CDT Need for hepatitis C screening test from Last 3 Months or Most Recently Relevant to Health Maintenance Results * HEPATITIS C ANTIBODY (06/26/2021 11:41 AM CDT) HEPATITIS C AB NON-REACTI VE NON-REACT EVE 06/26/2021 8:11 PM CDT [facility] Comment: ANTIBODIES TO HCV NOT DETECTED. DOES NOT EXCLUDE THE POSSIBILITY OF EXPOSURE TO HCV. 06/26/2021 11:4 1 AM CDT us Stoney Weinberg DO LABORATORY Final Re sult [facility] [address] [place] [address], [id number] from Last 3 Months or Most Recently Relevant to Health Maintenance Insurance [facility] Care Teams Wire Bound Box Machine Helper Relationship Specialty Start Date End Date Stoney Weinberg DO [address] [place] [id number] PCP - General FAMILY PRACTICE 06/26/21
--- OUTSIDE RECORDS SUMMARY | 2024-03-10 03:30 | XMS_ITS | Referral Summary ---
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 EQUIPMENT REPAIRER): Urine dip done in office: -nitrites, +blood [...] (06/29/2019): Added automatically from request for surgery [id number] Calculus of kidney 11/18/2015 Immunizations Name Administration Dates Next Due Influenza, Unspecified 07/03/2020(Deferr ed: Patient Refused),02/15/2019(Deferred: Patient Refused) MMR 09/10/2019 Moderna SARS-CoV-2 Monovalen t Vaccination (12+ YRS) 04/26/2020,04/05/2020 Social History Tobacco Use Types Packs/Day Years Used Date Smoking Tobacco: Never Smokeless Tobacco: Never PHQ-2 Answer Date Recorded PHQ-2 Total Score (If total score is 3 or more points, staff should administer the PHQ-9) 2 07/03/2020 Comments No Sex and Gender Information Value Date Recorded Sex Assigned at Not on file Legal Sex Female 1:43 AM UTILITIES EQUIPMENT REPAIRER Gender Identity Not on file Sexual Orientation Not on file Last Filed Vital Signs Vital Sign Reading Time Taken Comments Blood Pressure 92/62 04/01/2021 5:19 PM UTILITIES EQUIPMENT REPAIRER Pulse 77 04/01/2021 5:19 PM UTILITIES EQUIPMENT REPAIRER Temperature 36.9 ??C (98.4 ??F) 04/01/2021 5:19 PM CS T Respiratory Rate 16 04/01/2021 5:19 PM UTILITIES EQUIPMENT REPAIRER Oxygen Saturation 100% 04/01/2021 5:19 PM UTILITIES EQUIPMENT REPAIRER Inhaled Oxygen Concentration - - Weight 53.4 kg (117 lb 12.8 oz) 04/01/2021 5:19 PM UTILITIES EQUIPMENT REPAIRER Height 154.9 cm (5' 1 ) 04/01/2021 5:19 PM UTILITIES EQUIPMENT REPAIRER Body Mass Index 22.26 04/01/2021 5:19 PM UTILITIES EQUIPMENT REPAIRER Plan of Treatment Not on file Insurance [facility] [address] [place] [id number] [facility] Advance Directives For more information, please contact: [phone] * Full Code (Latest Code Status on File) Date Activated Date Inactivated Comments 09/08/2019 8:04 AM 09/08/2019 2:58 PM * Full Code Date Activated Date Inactivated Comments 09/08/2019 8:04 AM 09/08/2019 8:04 AM Care Teams Parachute Officer Relationship Specialty Start Date End Date Bobo Virk MD [address] [place] [address] PCP - General Family Medicine 03/27/19
--- OUTSIDE RECORDS SUMMARY | 2024-03-10 03:30 | XMS_ITS | Clinical Summary ---
Author Organization [facility] Address [address] [place] [address] Phone Care Team Providers Care Bilingual Teacher Assistant Name Role Phone Stoney Weinberg Dionne BERRIOS Primary Care Provider + Allergies Active Allergy Reactions Criticality Noted Date Comments Penicillins Hives,Itching,Rash Medium 06/26/2021 Medications No known medications Social History Tobacco Use Types Packs/Day Years Used Date Smoking Tobacco: Never Smokeless Tobacco: Never Comments No Sex and Gender Information Value Date Recorded Sex Assigned at Not on file Legal Sex Female 9:00 AM CDT Gender Identity Not on file Sexual Orientation Not on file Last Filed Vital Signs Vital Sign Reading Time Taken Comments Blood Pressure 100/60 11/18/2022 9:16 AM CDT Pulse 73 11/18/2022 9:16 AM CDT Temperature 36.7 ??C (98.1 ??F) 11/18/2022 9:16 AM CD T Respiratory Rate 16 11/18/2022 9:16 AM CDT Oxygen Saturation 98% 11/18/2022 9:16 AM CDT Inhaled Oxygen Concentration - - Weight - - Height - - Body Mass Index - - Plan of Treatment Health Maintenance Due Date Last Done Comments Hepatitis C Virus (HCV) Screening 1988 TdaP Immunization 1988 Hepatitis B Immunization (1 of 3 - 19+ 3-dose series) 08/14/2007 Pap Smear 2009 Cervical Cancer Screening (CCS) 2018 HPV/Cotest 2018 Influenza Immunization (#1) 2023 SARS-COV-2 Immunization ( season) 2023 12/20/2021, 01/31/2021, 04/26/2020, Additional history exists Respiratory Syncytial Virus (RSV) Immunization (Adult) (1 - 1-dose 75+ series) 08/14/2063 Meningococcal Immunization (ACWY) Aged Out No longer eligible based on patient's age to complete this topic Pneumococcal Immunization Combined Aged Out No longer eligible based on patient's age to complete this topic Rotavirus Immunization Aged Out No lo nger eligible based on patient's age to complete this topic Insurance [facility] Care Teams Bilingual Teacher Assistant Relationship Specialty Start Date End Date Stoney Weinberg DO [address] [place] [id number] PCP - General Family Medicine 11/18/22
--- OUTSIDE RECORDS SUMMARY | 2024-03-10 03:30 | XMS_ITS | Clinical Summary ---
Author Organization [facility] Address [address] [place] [address] Phone Care Team Providers Care Paper Coating Machine Operator Name Role Phone Unavailable Primary Care Provider Unavailabl e Social History Tobacco Use Types Packs/Day Years Used Date Smoking Tobacco: Never Assessed Comments Unknown Sex and Gender Information Value Date Recorded Sex Assigned at Not on file Legal Sex Female 1:26 PM CDT Gender Identity Not on file Sexual Orientation Not on file Plan of Treatment Health Maintenance Due Date Last Done Comments HEPATITIS B VACCINES (1 of 3 - 19+ 3-dose series) 08/14/2007 CERVICAL CANCER SCREENING 2018 INFLUENZA VACCINE (#1) 2023 02/25/2023 COVID-19 Vaccine ( season) 2023 12/20/2021, 01/31/2021, 04/26/2020, Additional history exists DTAP/TDAP/TD VACCINES (2 - Td or Tdap) 02/25/2033 02/25/2023 HPV VACCINES Aged Out No longer eligi ble based on patient's age to complete this topic PNEUMOCOCCAL VACCINE 0-64 YEARS Aged Out No longer eligible based on patient's age to complete this topic Insurance [facility] BLUE OPTIONS [facility]
== END 2024-03-08 18:41 | disposition left against medical advice (07) ==
PROVIDERS: Emergency Provider Nurse Practitioner; PCP Student in an Organized Health Care Education/Training Program
DX: Z53.21 Procedure and treatment not carried out due to patient leaving prior to being seen by health care provider (principal)
CPT/HCPCS: 99199

== ENCOUNTER 2024-03-08 19:16 | Emergency (ER) | payer BC, SELFPAY ==
--- NOTE | ~2024-03-08 | CT_ITS ---
CLINICAL INDICATION: Left-sided flank pain COMPARISON: None. TECHNIQUE: Multiple contiguous axial images of the abdomen and pelvis were performed without the admi nistration of intravenous contrast The dose-length product (DLP) was 271.94 mGy-cm. Automated exposure control and iterative reconstruction technique were employed. FINDINGS/OBSERVATIONS: Visualized lower thorax: The bilateral lung bases are clear. The heart is of normal size, without pericardial effusion. Liver: The liver demonstrates homogeneous attenuation and is not enlarged measuring 17 cm in longitudinal di mension. Gallbladder and biliary system: The gallbladder is only minimally distended, and otherwise unremarkable. Pancreas: Limited evaluation of the pancreas secondary to the lack of intravenous contrast. Spleen: The spleen demonstrates homogeneous attenuation and is not enlarged measuring 6 cm in longitudinal di mension. Kidneys: Global enlargement of the left kidney with multiple nonobstructing stones. The largest stone is located within the interpolar region measuring 5 mm. Moderate left-sided hydroureteronephrosis extending to the distal left ureter where a 5 mm calculus i s present. The right kidney contains multiple subcentimeter nonobstructing stones but is without hydronephrosis. Adrenal glands: Unremarkable. Gastrointestinal tract: Fecal stasis within the colon. Appendix: The appendix is not definitively visualized. However, no pericecal inflammatory change is identified suggest the presence of acute appendicitis. Vasculature: Unremarkable. Lymph nodes: Limited evaluation without intravenous contrast. Pelvic structures: The bladder is decompressed, and otherwise unremarkable. The uterus is anteverted and anteflexed, and otherwise unremarkable. Body wall and musculoskeletal: Small fat-containing umbilical hernia. No significant degenerative disease within the lower thoracic or lumbosacral spine. IMPRESSION: Left-sided hydroureteronephrosis secondary to a 5 mm calculus within the distal left ureter. Reviewed, dictated and finalized at location A. UM CONDITIONER OPERATOR
[2024-03-08 19:18] VITALS: BP 133/79; PULSE 86; RESP 14; TEMP 36.7; O2SAT 100
[2024-03-08 19:50] LABS: BEDSIDEPREGUCG Positive (Negative)
--- NOTE | 2024-03-08 19:50 | PC.NURSE ---
Lab called to add on beta hcg.
[2024-03-08 19:51] LABS: Basophils Percent Auto 0.3 % (0.2-1.2); Eosinophils Absolute Auto 0.1 K/mm3 (0-0.3); Eosinophils Percent Auto 0.8 % (0-4.4); Hematocrit 39.9 % (37.0-47.0); Hemoglobin 12.8 g/dL (12.0-15.0); Immature Granulocyte Absolute 0.07 K/mm3 (0.00-0.031); Immature Granulocyte Percent A 0.6 % (0-0.5); Lymphocytes Percent Auto 18.6 % (18.3-44.2); Mean Corpuscular HGB Conc 32.1 g/dl (32-36); Mean Corpuscular Hemoglobin 26.5 pg (26-34); Mean Corpuscular Volume 82.6 fl (80-100); Mean Platelet Volume 11.2 fl (7.4-10.4); Monocytes Absolute Auto 0.8 K/mm3 (0.1-0.6); Monocytes Percent Auto 6.6 % (2.6-8.5); Neutrophils Absolute Auto 8.7 K/mm3 (1.3-6.7); Neutrophils Percent Auto 73.1 % (45.5-73.1); Platelet Count Result 325 k/mm3 (150-375); Red Blood Count 4.83 M/mm3 (4.2-5.4); Red Cell Distribution Width 17.4 % (11.5-14.5); White Blood Count 11.8 K/mm3 (4.5-10.0)
[2024-03-08 20:03] LABS: Alanine Aminotransferase 29 U/L (6-35); Alkaline Phosphatase 81 U/L (38-126); Anion Gap 12 mmol/L (4-12); Aspartate Amino Transferase 28 U/L (14-36); Bilirubin,Total 0.3 mg/dL (0.2-1.3); Blood Urea Nitrogen 19 mg/dL (7-17); Calcium 8.5 mg/dL (8.4-10.2); Carbon Dioxide 23 mmol/L (22-30); Chloride 105 mmol/L (98-107); Estimated CRCL calculation 55 ml/min; Estimated Glomerular Filt Rate 58; Glucose 100 mg/dL (65-110); Potassium 3.6 mmol/L (3.4-5.0); Sodium 140 mmol/L (137-145)
[2024-03-08 20:09] LABS: Add Urine Microscopic? YES; Appearance Urine Clear (Clear); Bacteria Urine None Seen /hpf; Bilirubin Urine Negative (Negative); Blood Urine Non-Hemolyzed Trace (Negative); Color Urine Yellow (Yellow); Glucose Urine UA Negative (Negative); Ketones Urine Trace mg/dL (Negative); Leukocyte Esterase Ur Negative LEU/UL (Negative); Nitrate Urine Negative (Negative); Non Pathogenic Casts 0-2; Protein Urine 1+ mg/dL (Negative); Specific Grav Ur 1.039 (1.001-1.035); Squamous Epithelial Cell Urine Few /hpf (Few); Urobilinogen Urine 0.2 mg/dL (<2.0); WBC Urine 0-5 /hpf (0-3)
--- NOTE | 2024-03-08 20:14 | ED.FEMALEGU ---
HPI - Female Genitourinary General Chief complaint: Urogenital-Female Stated complaint: Left flank pain- hx of kidney stones Time Seen by Provider: 03/08/24 19:24 History of Present Illness HPI Narrative: Patient is a 33-year-old female who presents to the emergency department this evening complaining of left-sided flank pain that started this afternoon. Patient admits that she does have a history of kidney stones and states that this feels very similar. Pain has been persistent since 1330 this afternoon. Patient tried [id number] medications with minimal to no relief. Denies any urinary symptoms including dysuria or hematuria, denies any fevers or chills. No additional symptoms or concerns at this time. Related Data Home Medications ?Medication ?Instructions ?Recorded ?Confirmed ?Last Taken ?Type [id number] 3-fat com #1 27 1 cap PO DAILY 12/03/22 03/08/24 12/04/22 History mg-1 mg-300 mg capsule norethindrone 1 mg-ethinyl tablet 03/08/24 Unknown History estradiol 10 mcg (24)-iron 10 mcg(2) tablet (Lo Loestrin Fe) Allergies Allergy/AdvReac Type Severity Reaction Status Date / Time Penicillins Allergy Severe Hives Verified 03/08/24 19:17 Review of Systems Review of Systems: All systems are reviewed and are negative unless stated otherwise in the HPI. [facility] Past Medical History Medical History Family history of colon cancer Family History Family History Grandparent Colon cancer Grandparent Colon cancer Father Colon cancer Social History Social History Smoking status: Never smoker Alcohol intake: current Substance use: never Substance use type: marijuana Other substance usage details: SMOKES OCC. Do You Feel Safe in your Home?: Yes Lack of Transportation: No Lack of Food: Never True Current Housing: I Have Housing Concerned About Future Housing: No Difficulty Paying Gas/Electric Bills: No Difficulty Paying for Meds: No Currently Unemployed: No Education: Trade/Vocational Certificate Difficulty w/ Childcare or Family Care: No Living arrangements: with family Spiritual care concerns: No Exam Narrative: General: Alert, awake, afebrile, in no acute distress. HEENT: PERRL, no rhinorrhea, no post nasal drip, oropharynx clear. Neck: Trachea midline, no JVD, no lymphadenopathy. Cardiovascular: Regular rate and rhythm, no murmurs, rubs or gallops, no peripheral edema. Respiratory: Clear to auscultation bilaterally, no tachypnea, no wheezing, no rhonchi, no rubs, no respiratory distress. Abdomen: Soft, nontender, nondistended, no rebound, no guarding, no peritoneal signs. Musculoskeletal: No joint swelling or deformity, normal muscle tone. Skin: No rashes or petechia, no signs of infection. Psychiatric: Alert and oriented, normal behavior and judgment for situation. Neurological: Alert and oriented to person, place, and time. Follows all commands. No focal deficits, speech is clear and fluent. Course Vital Signs Vital signs: Vital Signs Temperature 98.1 F 03/08/24 19:18 Pulse Rate 86 03/08/24 19:18 Respiratory Rate 14 03/08/24 19:18 Blood Pressure 133/79 03/08/24 19:18 Pulse Oximetry 100 03/08/24 19:18 Oxygen Delivery Room Air 03/08/24 19:18 Temperature 98.1 F 03/08/24 19:18 Pulse Rate 88 03/08/24 23:49 Respiratory Rate 18 03/08/24 23:49 Blood Pressure 97/78 L 03/08/24 23:49 Pulse Oximetry 100 03/08/24 23:49 Oxygen Delivery Room Air 03/08/24 19:18 MDM - Female Genitourinary MDM Narrative Medical decision making narrative: The patient was evaluated by myself in the emergency department. History is obtained from patient who is an independent historian and physical exam was performed. External medical records were reviewed at this time. IV was established and pertinent tests were ordered. Patient was administered 15 mg of IV Toradol, 4 mg IV Zofran and 1 L IV fluid bolus with normal saline. Laboratory results obtained revealing no acute process. Urinalysis revealed trace ketones and trace blood. Imaging studies obtained included CT abdomen and pelvis without IV contrast which was independently interpreted by me revealing a left-sided hydroureteronephrosis secondary to a 5 mm calculus within the distal left ureter. Patient was informed of these findings at bedside patient states that she has passed kidney stones in the past larger than 5 mm. Patient continues to remain nauseous and at this time a 2nd IV fluid bolus with normal saline, 10 mg of IV Reglan and 25 mg of IV Benadryl were administered. Patient was also administered 4 mg of IV morphine for pain. Differential diagnosis considerations include kidney stones, pyelonephritis, musculoskeletal strain. Comorbidities impacting this visit include history of kidney stones. I have evaluated and discussed social determinants of health with the patient that could potentially impact subsequent diagnosis and treatment plans. On repeat assessment of the patient, reevaluation revealed that the patient is doing well and is in no acute distress. Patient symptoms have improved since she arrived to our emergency department. Repeat vital signs were all reviewed and noted to be stable. Differential diagnosis and treatment plan were discussed with the patient at bedside. Patient agrees with discussion and after shared medical decision making agrees with discharge. All questions were answered to the patient's satisfaction. Patient will follow up with her urology 3-5 days. Scripts for Flomax, Lodge, ibuprofen and Zofran were sent to patient's pharmacy to use as needed to help with her symptoms. Patient was provided with strict return precautions and instructed to return to the emergency department if any new or worsening symptoms develop. The patient was discharged in stable condition. Lab Data 03/08/24 19:41 03/08/24 19:41 Labs: Lab Results 03/08/24 03/08/24 Range/Units 19:41 19:47 WBC 11.8 H (4.5-10.0) K/mm3 RBC 4.83 (4.2-5.4) M/mm3 Hgb 12.8 D (12.0-15.0) g/dL Hct 39.9 (37.0-47.0) % MCV 82.6 (80-100) fl MCH 26.5 (26-34) pg MCHC 32.1 (32-36) g/dl RDW 17.4 H (11.5-14.5) % Plt Count 325 (150-375) k/mm3 MPV 11.2 H (7.4-10.4) fl Immature Gran % (Auto) 0.6 H (0-0.5) % Neut % (Auto) 73.1 (45.5-73.1) % Lymph % (Auto) 18.6 (18.3-44.2) % [place] % (Auto) 6.6 (2.6-8.5) % Eos % (Auto) 0.8 (0-4.4) % Baso % (Auto) 0.3 (0.2-1.2) % Lymph # (Auto) 2.20 (0.9-3.2) K/mm3 [place] # (Auto) 0.8 H (0.1-0.6) K/mm3 Eos # (Auto) 0.1 (0-0.3) K/mm3 Baso # (Auto) 0.0 (0.0-0.1) K/mm3 Abs Immat Gran (auto) 0.07 H (0.00-0.031) K/mm3 Absolute Neuts (auto) 8.7 H (1.3-6.7) K/mm3 Absolute Nucleated RBC 0.000 (0.0-0.012) K/mm3 Nucleated RBC % 0.0 (0.0-0.2) % Sodium 140 (137-145) mmol/L Potassium 3.6 (3.4-5.0) mmol/L Chloride 105 (98-107) mmol/L Carbon Dioxide 23 (22-30) mmol/L Anion Gap 12 (4-12) mmol/L BUN 19 H (7-17) mg/dL Creatinine 1.07 H (0.7-1.0) mg/dL Estim Creat Clear Calc 55 ml/min Estimated GFR 58 L (59 - ) Glucose 100 (65-110) mg/dL Calcium 8.5 (8.4-10.2) mg/dL Total Bilirubin 0.3 (0.2-1.3) mg/dL AST 28 (14-36) U/L ALT 29 (6-35) U/L Alkaline Phosphatase 81 (38-126) U/L Total Protein 7.0 (6.3-8.2) g/dL Albumin 4.0 (3.5-5.1) g/dL Beta HCG, Quant < 2.39 mIU/ML Urine Color Yellow (Yellow) Urine Appearance Clear (Clear) Urine pH 6.0 (5.0-9.0) Ur Specific Millis 1.039 H (1.001-1.035) Urine Protein 1+ H (Negative) mg/dL Urine Glucose (UA) Negative (Negative) mg/dL Urine Ketones Trace H (Negative) mg/dL Ur Blood (Man) Non-hemolyzed trace H (Negative) Urine Nitrate Negative (Negative) Urine Bilirubin Negative (Negative) Urine Urobilinogen 0.2 (<2.0) mg/dL Leukocyte Esterase Rfl Negative (Negative) SHAI/UL Urine RBC 3-5 H (0-2) /hpf Urine WBC 0-5 (0-3) /hpf Ur Squamous Epith Cells Few (Few) /hpf Urine Bacteria None seen /hpf Urine Casts 0-2 POC Urine HCG, Qual Positive (Negative) Discharge Plan Discharge Clinical Impression: Kidney stone, Hydroureteronephrosis Patient Disposition: Home, Self-Care Condition: Improved Instructions: Antibiotic Form, Kidney Stones (ED) Additional Instructions: Please follow-up with urologist your provided with today, call tomorrow to set up a follow-up appointment to be seen within the next 3-5 days. Return to the emergency department if any new or worsening symptoms develop. Take the prescribed medications as instructed to help with your symptoms. Patient Language: Samoan Prescriptions: New ondansetron 4 mg tablet,disintegrating 4 mg PO Q8H PRN (Reason: nausea and vomiting) Qty: 14 0RF hydrocodone-acetaminophen 5-325 mg tablet 1 tablet PO Q8H PRN (Reason: pain) Qty: 14 0RF ibuprofen 400 mg tablet 400 mg PO TID PRN (Reason: pain) Qty: 20 0RF tamsulosin [Flomax] 0.4 mg capsule 0.4 mg PO DAILY Qty: 14 0RF No Action Lo Loestrin Fe 1 mg-10 mcg (24)/10 mcg (2) tablet [id number] 3-fat com #1 27-1-300 mg Capsule 1 cap PO DAILY norethindrone (contraceptive) 0.35 mg tablet 0.35 mg PO DAILY Qty: 84 3RF Follow-up/Referrals: Sultana,DO Stoney [Primary Care Provider] - 1 Week Mario Rowan MD [Physician] - 3 Days Time of Disposition: 23:42
[2024-03-08] MEDS: SODIUM CHLORIDE 0.9% IV 1,000 ML 999 ML IV CONT ×2 (20:22→22:08)
[2024-03-08 20:30] LABS: Beta HCG Quantitative < 2.39 mIU/ML
[2024-03-08] MEDS: KETOROLAC 15 MG/ML VIAL (*BKC) IV PUSH (21:00)
[2024-03-08] MEDS: ONDANSETRON INJ 4 MG/2 ML VIAL IV PUSH ×2 (21:00→22:16)
--- NOTE | 2024-03-08 21:16 | PC.NURSE ---
Pt. pain severity increased since she arrived. Pt. crying d/t pain. Pt. moved to a monitored room. MD Hammond notified of change in pt. condition. See MAR for additional interventions.
[2024-03-08] MEDS: MORPHINE SULFATE (*CRX) 4 MG/ML INJ IV PUSH ×2 (21:19→22:09)
[2024-03-08] MEDS: METOCLOPRAMIDE HCL INJ 10 MG/2 ML VIAL IV PUSH (21:19)
[2024-03-08] MEDS: diphenhydrAMINE HCl INJ 50 MG/ML VIAL 25 MG IV PUSH (21:19)
[2024-03-08 21:20] VITALS: BP 115/84; PULSE 95; RESP 18; O2SAT 100
[2024-03-08 22:39] VITALS: BP 137/96; PULSE 82; RESP 18; O2SAT 100
--- NOTE | 2024-03-08 23:37 | PC.NURSE ---
RN spoke with Dr. Galvez and states she will no longer be admitted due to pt request of changing pharmacy to a 07/09 open pharmacy so she can get her medications tonight instead of being admitted. Dr. Galvez states not to do urine drug screen, ekg, and haldol orders due to pt being discharged.
[2024-03-08 23:49] VITALS: BP 97/78; PULSE 88; RESP 18; O2SAT 100
== END 2024-03-08 23:50 | disposition home or self-care (01) ==
PROVIDERS: Emergency Medicine; Emergency Provider Emergency Medicine; PCP Student in an Organized Health Care Education/Training Program
DX: N13.2 Hydronephrosis with renal and ureteral calculous obstruction (principal); Z87.442 Personal history of urinary calculi; Z79.3 Long term (current) use of hormonal contraceptives
CPT/HCPCS: 36415; 74176; 80053; 81001; 81025; 84702; 85025; 96361; 96374; 96375; 96376; 99284; J1200; J1885; J2270; J2405; J2765; J7030

== ENCOUNTER 2024-03-10 00:39 | Inpatient (IN) | payer BC, SELFPAY ==
[2024-03-10] VITALS (13 sets, daily range): BP systolic 101–125; BP diastolic 66–98; PULSE 71–100; RESP 16–20; TEMP 36.4–36.6; O2SAT 99–100; BMI 26.4
[2024-03-10] MEDS: ONDANSETRON INJ 4 MG/2 ML VIAL IV PUSH (03:29)
[2024-03-10] MEDS: SODIUM CHLORIDE 0.9% IV 1,000 ML 999 ML IV CONT ×2 (03:29→05:10)
[2024-03-10] MEDS: MORPHINE SULFATE (*CRX) 4 MG/ML INJ IV PUSH (03:30)
--- NOTE | 2024-03-10 04:49 | ED.FEMALEGU ---
HPI - Female Genitourinary General Chief complaint: Urogenital-Female Stated complaint: kidney stone Time Seen by Provider: 03/10/24 03:07 History of Present Illness HPI Narrative: Patient is a 33-year-old female who presents to the Emergency department this evening complaining of nausea, vomiting left flank pain. Patient was seen our facility yesterday and diagnosed with a left distal ureteral stone measuring 5 mm. Patient required multiple doses of nausea medication and pain medication to control her symptoms and was offered admission for pain control and Urology consultation, however, patient requested to be discharged. Patient states that she is back again today as she could not keep down the oral pain medications at home despite the nausea medication. Patient states that she vomited everything that she had eaten and cannot keep any food or fluid down. Related Data Home Medications ?Medication ?Instructions ?Recorded ?Confirmed ?Last Taken ?Type KES-bquj-KH-omega 3-fat com #1 27 1 cap PO DAILY 12/03/22 03/08/24 12/04/22 History mg-1 mg-300 mg capsule norethindrone 1 mg-ethinyl tablet 03/08/24 Unknown History estradiol 10 mcg (24)-iron 10 mcg(2) tablet (Lo Loestrin Fe) Allergies Allergy/AdvReac Type Severity Reaction Status Date / Time Penicillins Allergy Severe Hives Verified 03/08/24 19:17 Review of Systems Review of Systems: All systems are reviewed and are negative unless stated otherwise in the HPI. [facility] Past Medical History Medical History Family history of colon cancer Family History Family History Grandparent Colon cancer Grandparent Colon cancer Father Colon cancer Social History Social History Smoking status: Never smoker Alcohol intake: current Substance use: never Substance use type: marijuana Other substance usage details: SMOKES OCC. Do You Feel Safe in your Home?: Yes Lack of Transportation: No Lack of Food: Never True Current Housing: I Have Housing Concerned About Future Housing: No Difficulty Paying Gas/Electric Bills: No Difficulty Paying for Meds: No Currently Unemployed: No Education: Trade/Vocational Certificate Difficulty w/ Childcare or Family Care: No Living arrangements: with family Spiritual care concerns: No Exam Narrative: General: Alert, awake, afebrile, in moderate distress. HEENT: PERRL, no rhinorrhea, no post nasal drip, oropharynx clear. Neck: Trachea midline, no JVD, no lymphadenopathy. Cardiovascular: Regular rate and rhythm, no murmurs, rubs or gallops, no peripheral edema. Respiratory: Clear to auscultation bilaterally, no tachypnea, no wheezing, no rhonchi, no rubs, no respiratory distress. Abdomen: Soft, nontender, nondistended, no rebound, no guarding, no peritoneal signs, left-sided CVA tenderness. Musculoskeletal: No joint swelling or deformity, normal muscle tone. Skin: No rashes or petechia, no signs of infection. Psychiatric: Alert and oriented, normal behavior and judgment for situation. Neurological: Alert and oriented to person, place, and time. Follows all commands. No focal deficits, speech is clear and fluent. Course Vital Signs Vital signs: Vital Signs Temperature 97.5 F L 03/10/24 00:42 Pulse Rate 100 03/10/24 00:42 Respiratory Rate 20 03/10/24 00:42 Blood Pressure 119/69 03/10/24 00:42 Pulse Oximetry 99 03/10/24 00:42 Oxygen Delivery Room Air 03/10/24 00:42 Temperature 97.5 F L 03/10/24 00:42 Pulse Rate 90 03/10/24 03:33 Respiratory Rate 18 03/10/24 03:33 Blood Pressure 102/82 03/10/24 03:33 Pulse Oximetry 99 03/10/24 03:33 Oxygen Delivery Room Air 03/10/24 00:42 MDM - Female Genitourinary MDM Narrative Medical decision making narrative: The patient was evaluated by myself in the emergency department. History is obtained from patient who is an independent historian and physical exam was performed. External medical records were reviewed at this time. IV was established and pertinent tests were ordered. Patient was administered 1 L IV fluid bolus with normal saline, 4 mg of IV Zofran for nausea and 4 mg of IV morphine for pain. Differential diagnosis considerations include renal colic, pyelonephritis, musculoskeletal strain. Comorbidities impacting this visit include history of recurrent kidney stones. I have evaluated and discussed social determinants of health with the patient that could potentially impact subsequent diagnosis and treatment plans. On repeat assessment of the patient, reevaluation revealed that the patient is doing well and is in no acute distress. Patient symptoms have improved since she arrived to our emergency department, however, she states that she feels as though her pain and nausea is coming back and so cannot tolerate p.o. intake. At this time a 2 L IV fluid bolus with normal saline was administered along with 15 mg of IV Toradol, 10 mg of IV Reglan and 50 mg of IV Benadryl. Repeat vital signs were all reviewed and noted to be stable. She was continued on maintenance fluids at a rate of 100 cc/hour normal saline. Differential diagnosis and treatment plan were discussed with the patient at bedside. Patient agrees with discussion and after shared medical decision making agrees with admission. All questions were answered to the patient's satisfaction. Case was discussed with the on-call ANESTHESIOLOGIST PHYSICIAN Madi @ 0500 who accepted admission. Per his request, repeat blood work was ordered at this time and is currently pending. Urological consultation was placed with the on-call urologist Dr. Laguna. Discharge Plan Discharge Clinical Impression: Hydroureteronephrosis, Left ureteral stone, Nausea & vomiting Patient Disposition: Still a Patient Condition: Improved Patient Language: [place] Prescriptions: No Action Lo Loestrin Fe 1 mg-10 mcg (24)/10 mcg (2) tablet OAM-pqig-BP-omega 3-fat com #1 27-1-300 mg Capsule 1 cap PO DAILY norethindrone (contraceptive) 0.35 mg tablet 0.35 mg PO DAILY Qty: 84 3RF ondansetron 4 mg tablet,disintegrating 4 mg PO Q8H PRN (Reason: nausea and vomiting) Qty: 14 0RF hydrocodone-acetaminophen 5-325 mg tablet 1 tablet PO Q8H PRN (Reason: pain) Qty: 14 0RF ibuprofen 400 mg tablet 400 mg PO TID PRN (Reason: pain) Qty: 20 0RF tamsulosin [Flomax] 0.4 mg capsule 0.4 mg PO DAILY Qty: 14 0RF Follow-up/Referrals: Sultana,DO Stoney [Primary Care Provider] - Time of Disposition: 04:50
[2024-03-10] MEDS: diphenhydrAMINE HCl INJ 50 MG/ML VIAL IV PUSH (05:10)
[2024-03-10] MEDS: METOCLOPRAMIDE HCL INJ 10 MG/2 ML VIAL IV PUSH (05:10)
[2024-03-10] MEDS: KETOROLAC 15 MG/ML VIAL (*BKC) IV PUSH (05:10)
[2024-03-10 05:28] LABS: Basophils Percent Auto 0.3 % (0.2-1.2); Hematocrit 32.7 % (37.0-47.0); Hemoglobin 10.7 g/dL (12.0-15.0); Immature Granulocyte Absolute 0.04 K/mm3 (0.00-0.031); Immature Granulocyte Percent A 0.4 % (0-0.5); Lymphocytes Absolute Auto 1.31 K/mm3 (0.9-3.2); Lymphocytes Percent Auto 12.1 % (18.3-44.2); Mean Corpuscular HGB Conc 32.7 g/dl (32-36); Mean Corpuscular Hemoglobin 27.1 pg (26-34); Mean Corpuscular Volume 82.8 fl (80-100); Mean Platelet Volume 10.9 fl (7.4-10.4); Monocytes Absolute Auto 0.5 K/mm3 (0.1-0.6); Neutrophils Absolute Auto 8.9 K/mm3 (1.3-6.7); Neutrophils Percent Auto 82.2 % (45.5-73.1); Platelet Count Result 242 k/mm3 (150-375); Red Blood Count 3.95 M/mm3 (4.2-5.4); Red Cell Distribution Width 17.7 % (11.5-14.5); White Blood Count 10.8 K/mm3 (4.5-10.0)
[2024-03-10 05:37] LABS: Alanine Aminotransferase 23 U/L (6-35); Albumin Level 3.6 g/dL (3.5-5.1); Alkaline Phosphatase 66 U/L (38-126); Anion Gap 10 mmol/L (4-12); Aspartate Amino Transferase 22 U/L (14-36); Bilirubin,Total 0.5 mg/dL (0.2-1.3); Blood Urea Nitrogen 15 mg/dL (7-17); Calcium 8.1 mg/dL (8.4-10.2); Carbon Dioxide 21 mmol/L (22-30); Chloride 108 mmol/L (98-107); Estimated CRCL calculation 73 ml/min; Estimated Glomerular Filt Rate > 60; Glucose 104 mg/dL (65-110); Magnesium 1.8 mg/dL (1.6-2.3); Potassium 3.8 mmol/L (3.4-5.0); Sodium 139 mmol/L (137-145)
[2024-03-10 05:44] LABS: Add Urine Microscopic? YES; Appearance Urine Cloudy (Clear); Bacteria Urine None Seen /hpf; Bilirubin Urine Negative (Negative); Blood Urine 3+ (Negative); Budding Yeast Urine Present /hpf; Color Urine Yellow (Yellow); Glucose Urine UA Negative (Negative); Ketones Urine 2+ mg/dL (Negative); Leukocyte Esterase Ur Trace LEU/UL (Negative); Mucus Urine Present /lpf; Need Manual Microscopic Reviewed; Nitrate Urine Negative (Negative); Protein Urine 1+ mg/dL (Negative); RBC Urine 51-100 /hpf (0-2); Specific Grav Ur 1.021 (1.001-1.035); Squamous Epithelial Cell Urine None Seen /hpf (Few); Urobilinogen Urine 0.2 mg/dL (<2.0); pH Urine 5.5 (5.0-9.0)
--- NOTE | 2024-03-10 07:13 | WPDURCON ---
Assessment and Plan Assessment and plan (1) Left ureteral stone: Code(s): N20.1 - Calculus of ureter Status: Acute (2) Bilateral kidney stones: Code(s): N20.0 - Calculus of kidney Status: Acute Assessment and Plan: Cystoscopy, left ureteroscopy with stone extraction, possible laser lithotripsy, retrograde pyelogram and stent placement Urology Consult Note HPI Date Seen: 03/10/24 Requesting Physician: Tye Martinez MD Primary Care Provider: Stoney Weinberg, DO Consult Narrative Narrative: Anette Taylor is a 33 year old female Who is no stranger to kidney stones, having had approximately 8 in the past. Some of the stones have required intervention by Dr. Resendiz at [facility]. She has been in the ER here twice in the past 2 days with intermittent, moderate to severe left flank pain. She has had no fever chills gross hematuria. Imaging demonstrates an obstructing 5 mm left UVJ stone. Additionally, she has a 3-4 mm stone in her left kidney and a punctate stone in her right kidney. These kidney stones are nonobstructing. After discussion of options she is agreeable to endoscopic intervention for this ureteral calculus. She is aware we will not be able to treat the kidney stone at the same. Review of Systems Cardiovascular: Cardiovascular: Denies chest pain, Denies lightheadedness, Denies palpitations and Denies dyspnea Respiratory: Respiratory: Denies dyspnea Gastrointestinal: Gastrointestinal: Denies diarrhea, Denies nausea and Denies vomiting Genitourinary: Genitourinary: Denies hematuria and Denies dysuria Endocrine: Endocrine: Denies palpitations [facility] Past Medical History Medical History Family history of colon cancer Family History Family History Grandparent Colon cancer Grandparent Colon cancer Father Colon cancer Social History Social History Smoking status: Never smoker Alcohol intake: never Substance use: former Substance use type: marijuana Other substance usage details: SMOKES OCC. Do You Feel Safe in your Home?: Yes Lack of Transportation: No Lack of Food: Never True Current Housing: I Have Housing Concerned About Future Housing: No Difficulty Paying Gas/Electric Bills: No Difficulty Paying for Meds: No Currently Unemployed: No Education: Trade/Vocational Certificate Difficulty w/ Childcare or Family Care: No Living arrangements: with family Spiritual care concerns: No Meds Home Medications and Allergies Home Medications ?Medication ?Instructions ?Recorded ?Confirmed ?Type JOG-cnko-WB-omega 3-fat com #1 27 1 cap PO DAILY 12/03/22 03/10/24 History mg-1 mg-300 mg capsule norethindrone (contraceptive) 0.35 0.35 mg PO DAILY #84 tabs 12/21/23 03/10/24 Rx mg tablet hydrocodone 5 mg-acetaminophen 325 1 tablet PO Q8H PRN pain #14 tabs 03/08/24 03/10/24 Rx mg tablet ibuprofen 400 mg tablet 400 mg PO TID PRN pain #20 tabs 03/08/24 03/10/24 Rx norethindrone 1 mg-ethinyl 1 tablet PO DAILY 03/08/24 03/10/24 History estradiol 10 mcg (24)-iron 10 mcg(2) tablet (Lo Loestrin Fe) ondansetron 4 mg disintegrating 4 mg PO Q8H PRN nausea and 03/08/24 03/10/24 Rx tablet vomiting #14 tabs tamsulosin 0.4 mg capsule (Flomax) 0.4 mg PO DAILY #14 caps 03/08/24 03/10/24 Rx Allergies Allergy/AdvReac Type Severity Reaction Status Date / Time Penicillins Allergy Severe Hives Verified 03/08/24 19:17 Vital Signs Vital Signs - 24 hr 03/10/24 00:42 03/10/24 03:33 03/10/24 03:46 Temperature 97.5 F L Pulse Rate 100 90 Respiratory Rate 20 18 Blood Pressure 119/69 102/82 106/75 Pulse Oximetry 99 99 99 Oxygen Delivery Room Air 03/10/24 04:01 03/10/24 04:16 03/10/24 04:31 Temperature Pulse Rate Respiratory Rate Blood Pressure 106/77 104/74 115/76 Pulse Oximetry 99 100 100 Oxygen Delivery 03/10/24 05:01 03/10/24 05:16 03/10/24 06:01 Temperature Pulse Rate 84 76 Respiratory Rate 16 16 Blood Pressure 105/80 125/98 H 101/71 Pulse Oximetry 100 100 99 Oxygen Delivery Results Labs 03/10/24 05:17 03/10/24 05:17 Labs: Short CBC 03/10/24 Range/Units 05:17 WBC 10.8 H (4.5-10.0) K/mm3 Hgb 10.7 L (12.0-15.0) g/dL Hct 32.7 L (37.0-47.0) % Plt Count 242 (150-375) k/mm3 BMP 03/10/24 05:17 Sodium 139 Potassium 3.8 Chloride 108 H Carbon Dioxide 21 L BUN 15 Creatinine 0.80 Glucose 104 Calcium 8.1 L Liver Function 03/10/24 Range/Units 05:17 Total Bilirubin 0.5 (0.2-1.3) mg/dL AST 22 (14-36) U/L ALT 23 (6-35) U/L Alkaline Phosphatase 66 (38-126) U/L Albumin 3.6 (3.5-5.1) g/dL Urine 03/10/24 Range/Units 05:17 Urine Color Yellow (Yellow) Urine Appearance Cloudy H (Clear) Urine pH 5.5 (5.0-9.0) Ur Specific [place] 1.021 (1.001-1.035) Urine Protein 1+ H (Negative) mg/dL Urine Glucose (UA) Negative (Negative) mg/dL
--- NOTE | 2024-03-10 07:16 | WPDHPUPDATE1 ---
History and Physical Update Update Date/Time: 03/10/24 07:16 History and Physical has been reviewed, including an updated exam of the patient. There are NO changes in the patient's condition. Risks, benefits, and alternatives have been discussed and questions answered. Patient agrees to proceed with procedure.
[2024-03-10] MEDS: MORPHINE SULFATE (*CRX) 2 MG/ML INJ IV PUSH (08:29)
--- NOTE | 2024-03-10 12:45 | PC.NURSE ---
To OR per [ ], IV [ ]. Report given to [Stephany].
--- NOTE | 2024-03-10 13:03 | SUR.PREOP ---
Addendum entered by Stephany Ott RN 03/10/24 13:14: Floor RN notified of findings and report given. Patient on way back to 325 via wheelchair. Original Note: Patient voided at 1255 with one large stone present in toilet. Flank pain no linger present. Dr. Lawler notified of findings and stated that patient's case is cancelled and she may go back up to med/surg floor.
--- NOTE | 2024-03-10 13:18 | PC.NURSE ---
Returned from OR per [ ]. Report received from [polo ]. surgery canceled
--- NOTE | 2024-03-10 16:16 | P.SS_ITS ---
Same Day Admit/Disch: HPI History of Present Illness Chief complaint: Left distal ureteral 5 mm stone, failed outp thera Narrative: Anette Taylor is a 33 year old female who presented the emergency room with reports of severe left-sided flank pain and bloody urine. Patient was seen at this facility 2 days ago for the same symptoms and had a CT abd/pelvic done that showed a left-sided hydroureteronephrosis secondary to a 5 mm calculus within the distal left ureter. Has symptoms associated with nausea and vomiting and patient was hydrated with IV fluids and treated symptomatically. Her symptoms resolved and patient declined admission as she reported a previous history with kidney stones and opted to follow up with her urologist outpatient for treatment. Early this morning patient had similar severe symptoms, left-sided flank pain, hematuria, associated with nausea and vomiting, as patient had not yet followed up with her urologist, she return to the emergency room for evaluation. She was admitted to the hospital and the urology is consulted for further treatment. Patient denied any chills or fevers, diarrhea, abdominal pain, dizziness, one- sided weakness, loss of consciousness. [facility] Past Medical History Medical History Family history of colon cancer Family History Family History Grandparent Colon cancer Grandparent Colon cancer Father Colon cancer Social History Social History Smoking status: Never smoker Alcohol intake: never Substance use: former Substance use type: marijuana Other substance usage details: SMOKES OCC. Do You Feel Safe in your Home?: Yes Lack of Transportation: No Lack of Food: Never True Current Housing: I Have Housing Concerned About Future Housing: No Difficulty Paying Gas/Electric Bills: No Difficulty Paying for Meds: No Currently Unemployed: No Education: Trade/Vocational Certificate Difficulty w/ Childcare or Family Care: No Living arrangements: with family Spiritual care concerns: No Same Day Admit/Disch: Med Pre-admit Medications Home Medications ?Medication ?Instructions ?Recorded ?Confirmed ?Type [id number] 3-fat com #1 27 1 cap PO DAILY 12/03/22 03/10/24 History mg-1 mg-300 mg capsule norethindrone (contraceptive) 0.35 0.35 mg PO DAILY #84 tabs 12/21/23 03/10/24 Rx mg tablet hydrocodone 5 mg-acetaminophen 325 1 tablet PO Q8H PRN pain #14 tabs 03/08/24 03/10/24 Rx mg tablet ibuprofen 400 mg tablet 400 mg PO TID PRN pain #20 tabs 03/08/24 03/10/24 Rx norethindrone 1 mg-ethinyl 1 tablet PO DAILY 03/08/24 03/10/24 History estradiol 10 mcg (24)-iron 10 mcg(2) tablet (Lo Loestrin Fe) ondansetron 4 mg disintegrating 4 mg PO Q8H PRN nausea and 03/08/24 03/10/24 Rx tablet vomiting #14 tabs tamsulosin 0.4 mg capsule (Flomax) 0.4 mg PO DAILY #14 caps 03/08/24 03/10/24 Rx Review of Systems Review of Systems All systems reviewed & are unremarkable except as noted in HPI and below Exam Narrative: HEENT: Atraumatic, PERRLA, EOM I, moist mucosa. Neck: Supple. Chest: Clear bilaterally. Heart: Regular rate and rhythm, no murmurs. Abdomen: soft, nontender, positive bowel sounds x4 quadrants. Extremities: Acyanotic, no edema. Skin: Warm and dry, no lesions. Psych: Pleasant and cooperative. Neuro: Well oriented, no focal neuro deficits noted. DS: Data Data Completed and Pending Pending studies at discharge: Pending at discharge 03/10/24 13:22 Surgical [PTH] Routine Labs on day of discharge: Labs from last 24 hours 03/10/24 05:17 WBC 10.8 H RBC 3.95 L Hgb 10.7 L Hct 32.7 L MCV 82.8 MCH 27.1 MCHC 32.7 RDW 17.7 H Plt Count 242 MPV 10.9 H Immature Gran % (Auto) 0.4 Neut % (Auto) 82.2 H Lymph % (Auto) 12.1 L [place] % (Auto) 5.0 Eos % (Auto) 0.0 Baso % (Auto) 0.3 Lymph # (Auto) 1.31 [place] # (Auto) 0.5 Eos # (Auto) 0.0 Baso # (Auto) 0.0 Abs Immat Gran (auto) 0.04 H Absolute Neuts (auto) 8.9 H Absolute Nucleated RBC 0.000 Nucleated RBC % 0.0 Sodium 139 Potassium 3.8 Chloride 108 H Carbon Dioxide 21 L Anion Gap 10 BUN 15 Creatinine 0.80 Estim Creat Clear Calc 73 Estimated GFR > 60 Glucose 104 Calcium 8.1 L Magnesium 1.8 Total Bilirubin 0.5 AST 22 ALT 23 Alkaline Phosphatase 66 Total Protein 7.0 Albumin 3.6 Urine Color Yellow Urine Appearance Cloudy H Urine pH 5.5 Ur Specific [place] 1.021 Urine Protein 1+ H Urine Glucose (UA) Negative Urine Ketones 2+ H Ur Blood (Man) 3+ H Urine Nitrate Negative Urine Bilirubin Negative Urine Urobilinogen 0.2 Add Ur Microanalysis Reviewed Leukocyte Esterase Rfl Trace H Urine RBC 51-100 H Urine WBC 11-20 H Ur Squamous Epith Cells None seen Urine Bacteria None seen Urine Casts 6-10 Urine Mucus Present Urine Yeast (Budding) Present H DS: Summary Hospital Course Reason for hospitalization: Left ureteral stone. Hospital Course: Anette Taylor is a 33 year old female who presented the emergency room with reports of severe left-sided flank pain and bloody urine. Patient was seen at this facility 2 days ago for the same symptoms and had a CT abd/pelvic done that showed a left-sided hydroureteronephrosis secondary to a 5 mm calculus within the distal left ureter. Has symptoms associated with nausea and vomiting and patient was hydrated with IV fluids and treated symptomatically. Her symptoms resolved and patient declined admission as she reported a previous history with kidney stones and opted to follow up with her urologist outpatient for treatment. Early this morning patient had similar severe symptoms, left-sided flank pain, hematuria, associated with nausea and vomiting, as patient had not yet followed up with her urologist, she return to the emergency room for evaluation. She was admitted to the hospital and the urology is consulted for further treatment. Patient was scheduled for cystoscopy with left-sided ureteral stent placement and on arrival at the surgery room, imaging done showed that the patient had passed the stone, per urologist who's final report is still pending. With much improvement in symptoms and no previous stone noted in the left distal ureter, patient has been cleared for discharge by the urologist. Patient will be discharged home to follow-up with urologist as an outpatient per urologist's recommendation. No acute distress was noted or reported prior to discharge and patient is medically stable for discharge home. Patient will use pain medications prescribed 2 days ago on her initial presentation if she gets pain at home. Status at Discharge Functional status at discharge: independent ambulation Overall status at discharge: patient is progressing back to baseline Time Spent with Patient Time attestation: Total time spent providing and/or coordinating discharge services: Time spent: Greater than 30 minutes DS: Admitting Diagnosis Discharge Date 03/10/24 Admitting Diagnosis Left ureteral stone. DS: Discharge Diagnosis Discharge Diagnosis (1) Left ureteral stone: Code(s): N20.1 - Calculus of ureter Status: Acute Assessment and Plan: Acute. (2) Hydroureteronephrosis: Code(s): N13.30 - Unspecified hydronephrosis Status: Acute Assessment and Plan: Acute. (3) Nausea & vomiting: Code(s): R11.2 - Nausea with vomiting, unspecified Status: Acute Assessment and Plan: Acute. Plan Discharge home on self-care. Discharge Plan Discharge Attending physician on discharge: Tye Martinez Consulting providers: Renzo Laguna Discharging Clinician: Andrew Reddy Anticipated Discharge Date/Time: 03/10/24 16:40 Patient Disposition: Home, Self-Care Activity: unlimited Diet: regular Discharge Instructions: 1) Activity: ad-[place]. 2) Diet: resume your normal, pre-admission diet. 3) Follow-up: 1-2 weeks (my office will contact to arrange). Patient Instructions: Antibiotic Form, Ureteral Stones (GEN) Patient Language: [place]araguan Stand Alone Forms: General Discharge Information Follow-up/Referrals: Sultana,DO Stoney [Primary Care Provider] - Cj Lawler MD [Physician] - Discharge Medications: Continued Lo Loestrin Fe 1 mg-10 mcg (24)/10 mcg (2) tablet 1 tablet PO DAILY [id number] 3-fat com #1 27-1-300 mg Capsule 1 cap PO DAILY norethindrone (contraceptive) 0.35 mg tablet 0.35 mg PO DAILY Qty: 84 3RF ondansetron 4 mg tablet,disintegrating 4 mg PO Q8H PRN (Reason: nausea and vomiting) Qty: 14 0RF hydrocodone-acetaminophen 5-325 mg tablet 1 tablet PO Q8H PRN (Reason: pain) Qty: 14 0RF ibuprofen 400 mg tablet 400 mg PO TID PRN (Reason: pain) Qty: 20 0RF tamsulosin [Flomax] 0.4 mg capsule 0.4 mg PO DAILY Qty: 14 0RF Date of admission: 03/10/24 04:55 Primary Care Provider: SultanaStoney Admitting Provider: Tye Martinez Attending physician on admission: Tye Martinez Condition: Improved Quality If No VTE Prophylaxis Answer both mechanical and pharmacologic: Reason no mechanical VTE proph: low risk/not indicated Reason no pharmacologic proph: low risk/not indicated Hospitalist MIPS Advance Care Plan I have confirmed that the patient's Advanced Care Plan is present, code status is documented, or surrogate decision maker is listed in patient medical record.: Yes Medication Reconciliation I have utilized all available resources to obtain, update and review the patients current medications (includes all prescriptions, OTC, herbals, cannabis, and nutritional supplements).: Yes Heart Failure (Exclusion) Patient has history of Heart Transplant or Left Ventricular Assistive Device?: No IF YES, STOP HERE Heart Failure (Qualifier) Patient has current or prior documentation of LVEF less than or equal to 40%, or mod/servere depressed LVSF?: No IF NO, STOP HERE
== END 2024-03-10 16:00 | disposition home or self-care (01) | DRG 694 ==
LOC: ANHED 04:55 → ANH3MEDSUR 06:58
PROVIDERS: Urology; Admitting Provider Internal Medicine; Emergency Provider Emergency Medicine; PCP Student in an Organized Health Care Education/Training Program; Visit Provider Nurse Practitioner Adult Health
PROC: (CPT 52352; principal; 2024-03-10 14:00)
DX: N13.2 Hydronephrosis with renal and ureteral calculous obstruction (principal); R31.9 Hematuria, unspecified
CPT/HCPCS: 36415; 80053; 81001; 82365; 83735; 85025; 87086; 88300; 96361; 96374; 96375; 99285; J1200; J1885; J2270; J2405; J2765; J7030

== ENCOUNTER 2024-10-24 11:49 | Outpatient (CLI) | payer BC, SELFPAY ==
--- NOTE | ~2024-10-24 | XR_ITS ---
EXAM/PROCEDURE: XR abdomen/kub 1V - 10/24/2024 11:55 CDT HISTORY: 34 years old Female with Kidney stone COMPARISON: None available. TECHNIQUE: AP view(s) of the abdomen. FINDINGS: The bowel gas pattern is normal. There is no evidence for obstruction. No free intraperitoneal air is identified on this supine radiograph. The visualized soft tissue shadows are unremarkable. No gross bony abnormalities are seen. 0.5 cm hyperdensity in the right mid abdomen may represent a renal calculus. Visualized portions of lung bases are clear. IMPRESSION: 0.5 cm hyperdensity in the right mid abdomen may represent a renal calculus. Reviewed, dictated and finalized at location N.
== END 2024-10-24 11:50 | disposition home or self-care (01) ==
LOC: MICIMG 11:51
PROVIDERS: PCP Student in an Organized Health Care Education/Training Program; Visit Provider Urology
DX: N20.0 Calculus of kidney (principal)
CPT/HCPCS: 74018